=== PATIENT | female | born 1985 | race Caucasian/White ===

== ENCOUNTER 2017-10-08 12:05 | Inpatient (IN) | payer OTHER, SELFPAY ==
[2017-10-08 12:31] VITALS: BMI 33.3
[2017-10-08] MEDS: Lactated Ringers 1,000 ML 50 ML IV ×2 (12:45→18:11)
[2017-10-08 13:07] LABS: Hemoglobin 12.2 g/dl (12.0-15.0); Mean Corp Hgb Conc 33.9 g/gl (32-36); Mean Corpuscular Hgb 28.2 pg (27.0-32.0); Mean Corpuscular Volume 83.1 fL (81-99); Mean Platelet Vol. 11.4 fl (6.2-12.0); Platelet Count 143 K/mm3 (150-450); RBC Distribution Width CV 13.6 % (11.6-14.6); RBC Distribution Width SD 39.9 fl (35.1-43.9); Red Blood Count 4.33 M/mm3 (4.2-5.4); Scan Indicated on CBC? Y/N NO; White Blood Count 10.5 K/mm3 (4.4-11.0)
[2017-10-08] MEDS: Oxytocin 30 units/NS 500 ml 30 UNITS/500 ML IV.SOLN IV (13:45)
[2017-10-08] MEDS: Oxytocin 30 units/NS 500 ml 30 UNITS/500 ML IV.SOLN 334 UNITS IV (22:05)
[2017-10-08] MEDS: Oxytocin 30 units/NS 500 ml 30 UNITS/500 ML IV.SOLN 167 UNITS IV (22:35)
--- NOTE | 2017-10-08 23:50 | PCM.HPOB.BLA ---
- Problem List (1) Encounter for induction of labor Status: Acute (2) History of fourth degree perineal laceration Status: Acute Comment: discussed primary cs versus IOL at 39 weeks. information/handouts from ACOG given. patient undecided, expectant management (3) Supervision of normal Status: Acute Qualifiers: Comment: BRANDI 10/14/17 [facility] estefanía Juan Daniel KELLY [facility] History and Physical Date of Admission: 10/08/17 Intake Vital Signs 10/05/17 Height 5 ft 8 in 10/05/17 Weight: 212 lb 6 oz 10/05/17 Body Mass Index (BMI) 32.3 10/05/17 Blood Pressure 125/78 Intake Visit Reasons: (OB) Chief Complaint: est ob [employer] Required: No Is patient in pain?: No Allergies No Known Allergies Allergy (Verified 10/05/17 08:51) Medications Vits [Prenatabs FA] 1 tab PO DAILY 10/24/14 [History Confirmed 10/05/17] Last Menstral Period: 01/07/17 Zika: Zika virus screening: Negative : No PFSH PFSH Social History Smoking Status: Never smoker second hand exposure: No alcohol intake: never substance use type: does not use caffeine: Yes Type: coffee Number of servings: 1 what type of physical activity do you participate in: walking frequency: 3-4 times per week seatbelt use: always 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 Date Name GA/Weeks Outcome Route Bth Weight Gen Labor Lgth Anesthesia Del Locatn Provider FOB 02/21/15 Estefanía 41 live - full term vacuum 9lbs 2oz Male Delivery Date: 02/21/15 On 08/25/17 @ 11:29 Verenice Mendez VAVD 4th degree laceration HPI (OB): Details: RADHA JOSE is a 31 year old who presents for routine OB visit. she is planning on an IOL OB Visit BRANDI Calculator Estimated Delivery Date 10/14/17 Based on LMP (certain) 01/07/17 Current WG 38w 5d Number 1 Expected Delivery Route/Plan discussed versus primary cs for risk of fourth degree laceration- literature given Specific Issue/Plans flu and tdap given larc signed Initial Weight: Not Recorded Date EGA Weight BP Urine Prot Glucose FHR FuHt Pres Mov CTX Dilation Effaced St Visit Note Provider Comments 08/11/17 30w 6d 197 lb 8 oz 124/74 150 31 Cephalic Active absent no vb lof good fm no regular ctx. 08/25/17 32w 6d 201 lb 8 oz 121/73 Negative Negative 145 34 Cephalic Active absent no vb lof good fm no regular ctx. no vb lof good fm n oregular ctx 09/10/17 35w 1d 210 lb 120/75 Negative Negative 140 35 Cephalic Active absent no vb lof good fm no regular ctx 09/16/17 36w 0d 206 lb 133/79 Negative Negative 145 36 Cephalic Active absent occasional 1 2: 0 -4 no vb lof good fm no regular ctx no vb lof good fm no regular ctx discussed weight and with IOL at 39 weeks to limit size vs primary cs. will depend on cervicla exam. patient to decide. 09/23/17 37w 0d 209 lb 122/78 Negative Negative 140 36 Cephalic Active absent occasional 2 2: 0 -4 no vb lof good fm no regular ctx no vb lof good fm no regular ctx discussed weight and with IOL at 39 weeks to limit size vs primary cs. will depend on cervicla exam. patient to decide. no vb lofgood fm exp management 09/30/17 38w 0d 211 lb 117/78 Negative Negative 140 37 Cephalic Active absent occasional 3 4: 0 -3 no vb lof good fm no regular ctx no vb lofgood fm exp management NO VB LOF GOOD FM NO REGULAR CTX, EXPECTANT MANAGMANET 10/05/17 38w 5d 212 lb 6 oz 125/78 140 40 Cephalic Active absent occasional 4 5: 0 -3 no vb lof good fm no regular ctx NO VB LOF GOOD FM NO REGULAR CTX, EXPECTANT MANAGMANET Visit Notes Visit Date: 10/05/17 ??NO VB LOF GOOD FM NO REGULAR CTX, EXPECTANT MANAGMANET ??Verenice?Andrea,??on?10/04/17 ??no vb lofgood fm exp management ??Verenice?Andrea,??on?09/23/17 ??no vb lof good fm no regular ctx ??Verenice?Andrea,??on?09/10/17 Visit Date: 09/30/17 ??NO VB LOF GOOD FM NO REGULAR CTX, EXPECTANT MANAGMANET ??Verenice?Andrea,?MD?on?10/04/17 ??no vb lofgood fm exp management ??Verenice?Andrea,?MD?on?09/23/17 ??no vb lofgood fm exp management ??Verenice?Andrea,??on?09/23/17 ??no vb lof good fm no regular ctx ??Verenice?Andrea??on?09/10/17 Visit Date: 09/23/17 ??no vb lofgood fm exp management ??Verenice?Andrea,??on?09/23/17 ??no vb lof good fm no regular ctx discussed weight and with IOL at 39 weeks to limit size vs primary cs. will depend on cervicla exam. patient to decide. ??Verenice?Andrea??on?09/16/17 ??no vb lof good fm no regular ctx ??Verenice?Andrea??on?09/10/17 ??no vb lof good fm no regular ctx ??Verenice?Andrea??on?09/10/17 Visit Date: 09/16/17 ??no vb lof good fm no regular ctx discussed weight and with IOL at 39 weeks to limit size vs primary cs. will depend on cervicla exam. patient to decide. ??Verenice?Andrea??on?09/16/17 ??no vb lof good fm no regular ctx ??Verenice?Andrea??on?09/10/17 ??no vb lof good fm no regular ctx ??Verenice?Andrea??on?09/10/17 Visit Date: 09/10/17 ??no vb lof good fm no regular ctx ??Verenice?Andrea??on?09/10/17 ??no vb lof good fm n oregular ctx ??Verencie?Andrea??on?08/25/17 Visit Date: 08/25/17 ??no vb lof good fm n oregular ctx ??Verenice?GENA Mendez?on?08/25/17 ??no vb lof good fm no regular ctx. ??Verenice?GENA Mendez?on?08/11/17 Visit Date: 08/11/17 ??no vb lof good fm no regular ctx. ??Verenice?Andrea??on?08/11/17 Assessment & Plan Problems 1. Encounter for supervision of other normal in third trimester Z34.83 BRANDI 10/14/17 hilda CLOUD estefanía Juan Daniel KELLY Chris MAGyjg 2. History of fourth degree perineal laceration Z87.59 discussed primary cs versus IOL at 39 weeks. information/handouts from ACOG given. patient undecided, expectant management Plan discussed cs versus IOL or expectant management patient wishes to proceed with IOL-plan pit on Plan Detail Goals Decrease pain and spasm Barriers Coding Level of Care Code OB Routine Diagnoses Encounter for supervision of other normal in third trimester Z34.83 ??Normal : other normal ??Trimester: third trimester History of fourth degree perineal laceration Z87.59
--- NOTE | 2017-10-08 23:51 | PCM.OB.VAG ---
- Problem List (1) Encounter for induction of labor Status: Acute (2) History of fourth degree perineal laceration Status: Acute Comment: discussed primary cs versus IOL at 39 weeks. information/handouts from ACOG given. patient undecided, expectant management (3) Supervision of normal Status: Acute Qualifiers: Comment: BRANDI 10/14/17 [facility] estefanía Juan Daniel LETICIA [place] [facility] Vaginal Delivery Maternal Presentation: Medically Indicated Induction 31 yo @ 39 weeks presents for IOL hisotry of a fourth degree laceration with a previous 9 lb and vacuum delivery. patient was counseled on a primary cs versus exp managment vs IOL and patient wishes to proceed with an early IOL to reduce infant size. Method of Induction: Pitocin Amniotic Membrane Rupture Type: Artificial Amniotic Fluid Description: Clear Final BRANDI: 10/14/17 Gestational age: 39 Weeks and 1 Days [place] doctor who attended delivery (if requested by OB): Praveen Garrison MSSean Date of Procedure: 10/08/17 Pre-Operative Diagnosis: iol Post-Operative Diagnosis: same Surgery/ Procedure Performed: Spontaneous Vaginal Delivery Type of Anesthesia: Epidural Description of Procedure: spontaneous lucina vaginal delivery uncomplicated delayed cord clamping and 2nd degree laceration repaired in the usual fashion. 200 EBL. placenta delivered immediately following intact Presentation: LUCINA Placental Delivery Description: Spontaneous Cord Entanglement: None Estimated Blood Loss: 200 Infant A gender: Male Episiotomy Description: None Laceration: Perineal Extension/lac, 2nd degree Medications given after delivery: IV Pitocin Complications: None
--- NOTE | 2017-10-08 23:55 | OP.PCM_ITS ---
- Problem List (1) Encounter for induction of labor Status: Acute (2) History of fourth degree perineal laceration Status: Acute Comment: discussed primary cs versus IOL at 39 weeks. information/handouts from ACOG given. patient undecided, expectant management (3) Supervision of normal Status: Acute Qualifiers: Comment: BRANDI 10/14/17 [facility] estefanía Juan Daniel LETICIA [place] [facility] Vaginal Delivery Maternal Presentation: Medically Indicated Induction 31 yo @ 39 weeks presents for IOL hisotry of a fourth degree laceration with a previous 9 lb and vacuum delivery. patient was counseled on a primary cs versus exp managment vs IOL and patient wishes to proceed with an early IOL to reduce infant size. Method of Induction: Pitocin Amniotic Membrane Rupture Type: Artificial Amniotic Fluid Description: Clear Final BRANDI: 10/14/17 Gestational age: 39 Weeks and 1 Days [place] doctor who attended delivery (if requested by OB): Praveen Garrison MSSean Date of Procedure: 10/08/17 Pre-Operative Diagnosis: iol Post-Operative Diagnosis: same Surgery/ Procedure Performed: Spontaneous Vaginal Delivery Type of Anesthesia: Epidural Description of Procedure: spontaneous lucina vaginal delivery uncomplicated delayed cord clamping and 2nd degree laceration repaired in the usual fashion. 200 EBL. placenta delivered immediately following intact Presentation: LUICNA Placental Delivery Description: Spontaneous Cord Entanglement: None Estimated Blood Loss: 200 Infant A gender: Male Episiotomy Description: None Laceration: Perineal Extension/lac, 2nd degree Medications given after delivery: IV Pitocin Complications: None
[2017-10-09] MEDS: Naproxen 250 MG Tablet PO ×3 (02:30→18:33)
[2017-10-09] MEDS: oxyCODONE 5 MG Tablet PO (04:13)
[2017-10-09 04:15] VITALS: BP 109/63; PULSE 73; RESP 17; TEMP 36.3; O2SAT 97
[2017-10-09 08:00] VITALS: BP 118/73; PULSE 80; RESP 16; TEMP 36.6; O2SAT 97
[2017-10-09] MEDS: Prenatal Vits Tablet 1 TABLET PO (10:34)
[2017-10-09] MEDS: Senna/Docusate Sodium 1 Tablet PO (10:34)
[2017-10-09] MEDS: Dibucaine 30 GM Tube 1 APPLIC TOPICAL (10:40)
[2017-10-09 11:47] VITALS: BP 127/77; PULSE 81; RESP 16; TEMP 36.8; O2SAT 97
[2017-10-09] MEDS: Acetaminophen 500 MG Tablet 1000 MG PO ×2 (15:36→23:28)
[2017-10-09 16:40] VITALS: BP 124/85; PULSE 76; TEMP 36.4; O2SAT 97
[2017-10-09 20:50] VITALS: BP 119/69; PULSE 60; RESP 16; TEMP 36.8
[2017-10-10 02:00] VITALS: BP 127/79; PULSE 64; RESP 16; TEMP 36.6
[2017-10-10] MEDS: Naproxen 250 MG Tablet PO ×2 (02:21→09:49)
--- NOTE | 2017-10-10 08:28 | PCM.PN.OB ---
Patient Problems: Active and Suspected Problems (Last Reviewed 10/05/17 @ 15:50 by Alondra Whitney) Encounter for induction of labor (Acute) Subjective: late entry- seen 10/09/17 at 1710 doing well no complaints - Physical Exam General: Alert, Oriented x3 Vital Signs Temp Pulse Resp BP Pulse Ox 97.8 F 64 16 127/79 H 97 10/10/17 02:00 10/10/17 02:00 10/10/17 02:00 10/10/17 02:00 10/09/17 16:40 Oxygen Delivery Method Room Air Weight: 213 lb Body Mass Index (BMI) 33.3 Intake and Output for Last 24 Hours 10/08/17 10/09/17 10/10/17 23:59 23:59 23:59 Intake Total 2625 / 2625 Output Total 1350 / 1350 1600 / 1600 Balance 1275 / 1275 -1600 / -1600 Assessment/Plan Active and Suspected Problems (Last Reviewed 10/05/17 @ 15:50 by Alondra Whitney) Encounter for induction of labor (Acute) s/p routine care
--- NOTE | 2017-10-10 08:29 | PCM.PN.OB ---
Patient Problems: Active and Suspected Problems (Last Reviewed 10/05/17 @ 15:50 by Alondra Whitney) Encounter for induction of labor (Acute) Subjective: doing well no complaints - Physical Exam General: Alert, Oriented x3 Vital Signs Temp Pulse Resp BP Pulse Ox 97.8 F 64 16 127/79 H 97 10/10/17 02:00 10/10/17 02:00 10/10/17 02:00 10/10/17 02:00 10/09/17 16:40 Oxygen Delivery Method Room Air Weight: 213 lb Body Mass Index (BMI) 33.3 Intake and Output for Last 24 Hours 10/08/17 10/09/17 10/10/17 23:59 23:59 23:59 Intake Total 2625 / 2625 Output Total 1350 / 1350 1600 / 1600 Balance 1275 / 1275 -1600 / -1600 Assessment/Plan Active and Suspected Problems (Last Reviewed 10/05/17 @ 15:50 by Alondra Whitney) Encounter for induction of labor (Acute) s/p routine care ia home
--- NOTE | 2017-10-10 08:31 | PCM.DCVAG ---
Additional Instructions: If you experience any of the following, contact your healthcare provider. Bleeding that soaks a pad every hour for 2 hours Fever 100.4 or higher Unrelieved incision or abdominal pain Swelling, redness, discharge or bleeding from your incision or episiotomy site Your incision begins to separate Problems urinating (including inability to urinate or burning while urinating). Visual changes Severe headache Flu-like symptoms Pain or redness in one of both of your breasts Pain, warmth, tenderness or swelling in your legs, especially the calf area Frequent nausea and vomiting Symptoms of depression or anxiety If you experience any of the following, call 911 or go to the nearest Emergency Room. Chest pain Problems breathing Seizure activity Partial or complete paralysis of a body part, slurred speech, weakness or drooping of the face, or a sudden inability to walk or hold your balance Allergies/Adverse Reactions: Allergies No Known Allergies Allergy (Verified 10/08/17 15:53) Medications to take at Discharge Vits [Prenatabs FA] 1 tab PO DAILY 10/24/14 Please Follow Up With: Verenice Mendez MD - [phone] When: Call to make an appointment with your doctor in 6 weeks. If you had elevated Blood pressure or 4th degree laceration you will need to be seen in 2 weeks. Primary Care Physician: Clark Chisholm MD [Primary Care Provider] -
--- NOTE | 2017-10-10 08:32 | DCINST_ITS ---
Additional Instructions: If you experience any of the following, contact your healthcare provider. * Bleeding that soaks a pad every hour for 2 hours * Fever 100.4 or higher * Unrelieved incision or abdominal pain * Swelling, redness, discharge or bleeding from your incision or episiotomy site * Your incision begins to separate * Problems urinating (including inability to urinate or burning while urinating) . * Visual changes * Severe headache * Flu-like symptoms * Pain or redness in one of both of your breasts * Pain, warmth, tenderness or swelling in your legs, especially the calf area * Frequent nausea and vomiting * Symptoms of depression or anxiety If you experience any of the following, call 911 or go to the nearest Emergency Room. * Chest pain * Problems breathing * Seizure activity * Partial or complete paralysis of a body part, slurred speech, weakness or drooping of the face, or a sudden inability to walk or hold your balance Allergies/Adverse Reactions: Allergies No Known Allergies Allergy (Verified 10/08/17 15:53) Medications to take at Discharge Vits [Prenatabs FA] 1 tab PO DAILY 10/24/14 Please Follow Up With: Verenice Mendez MD - [phone] When: Call to make an appointment with your doctor in 6 weeks. If you had elevated Blood pressure or 4th degree laceration you will need to be seen in 2 weeks. Primary Care Physician: Clark Chisholm MD [Primary Care Provider] -
[2017-10-10] MEDS: Acetaminophen 500 MG Tablet 1000 MG PO (08:47)
[2017-10-10] MEDS: Prenatal Vits Tablet 1 TABLET PO (08:47)
[2017-10-10 09:27] VITALS: BP 119/69; PULSE 72; RESP 16; TEMP 37.2; O2SAT 99
[2017-10-10] MEDS: Senna/Docusate Sodium 1 Tablet PO (09:49)
[2017-10-10 13:30] VITALS: BP 126/79; PULSE 68; RESP 18; TEMP 36.3; O2SAT 100
--- NOTE | 2017-10-10 13:30 | NURSING ---
Pt informed this RN that when up to the shower she began to have some chest tightness and SOB that has improved with rest. Vitals taken on pt and all WNL. Call placed to Dr Mendez to inform of symptoms with normal vital signs and clear breath sounds and regular apical heart rate. Per Dr Mendez since the symptoms improved and vitals were normal at this time it was ok. To inform pt that if symptoms would persist or get worse to be checked out. Pt feels comfortable with these plans.
== END 2017-10-10 13:50 | disposition home or self-care (01) | DRG 775 ==
PROVIDERS: Admitting Provider Obstetrics & Gynecology; Family Provider Family Medicine; PCP Family Medicine; Visit Provider Obstetrics & Gynecology
DX: O34.73 Maternal care for abnormality of vulva and perineum, third trimester (principal); O70.1 Second degree perineal laceration during delivery; O77.0 Labor and delivery complicated by meconium in amniotic fluid; Z37.0 Single live birth; Z3A.39 39 weeks gestation of pregnancy; Z87.59 Personal history of other complications of pregnancy, childbirth and the puerperium
CPT/HCPCS: 59050; 85027; 86850; 86900; 99218; J7120; G0378

== ENCOUNTER 2018-01-13 12:11 | Emergency (ER) | payer OTHER, SELFPAY ==
[2018-01-13 12:12] VITALS: BP 143/84; PULSE 74; RESP 16; TEMP 36.3; O2SAT 95; BMI 28.2
--- NOTE | 2018-01-13 12:35 | CT_ITS ---
STUDY: CT ABDOMEN AND PELVIS WITHOUT CONTRAST REASON FOR EXAM: Female, 32 years old. Left flank pain and left lower quadrant pain. Acute onset. Hematuria. RADIATION DOSAGE (If Supplied By Facility): CTDIvol = ( 9.55 ) mGy, DLP = ( 467.84 ) mGycm TECHNIQUE: Transaxial images were obtained from the dome of the diaphragm to the symphysis pubis without oral contrast, and without intravenous contrast. Sagittal and coronal images were reconstructed. Individualized dose optimization techniques were used for this CT. COMPARISON: None. FINDINGS: Minimal increased markings at the left lung base suggestive of a atelectasis. The visualized portions of the heart are within normal limits. Normal liver. Normal gallbladder and extrahepatic biliary system. Normal spleen. Normal pancreas. Normal bilateral adrenal glands. 2 mm calculus in the upper pole calyx of the right kidney. 2.9 mm calculus in the lower pole of the right kidney. There is a 4.8 mm calculus in the upper midportion of the left kidney. Punctate calcification the upper pole calyx of the left kidney. Several small calculi are also seen in the lower pole of the left kidney. Mild degree of left hydronephrosis and left hydroureter due to a a 4.7 mm calculus at the base of the bladder on the left side. This most likely represents a recently passed left ureteral calculus. Normal visualized stomach. Normal small intestine. Normal colon. The appendix is visualized and appears normal. Normal abdominal aorta. Normal inferior vena cava. Normal retroperitoneum. Normal urinary bladder. Normal abdominal wall. Normal osseous structures. CT/Abdomen/Pelvis without Cont IMPRESSION: Bilateral nonobstructive intrarenal calculi are Mild degree of left hydronephrosis and left hydroureter most likely secondary to a recently passed 4.7 mm calculus which lies at the base of the bladder on the right side. Electronically Signed: Colton Garnica MD at 14:11 EDT Tel [phone], Service support ,
[2018-01-13] MEDS: Ketorolac 30 MG/ML Syringe IV (12:53)
[2018-01-13] MEDS: Ondansetron 4 MG/2 ML Vial IV (12:53)
[2018-01-13] MEDS: 0.9% Normal Saline 1,000 ML 250 ML IV (12:53)
[2018-01-13 13:02] LABS: Bacteria 0 SEEN /hpf (None Seen); Mucous, Urine 0 SEEN /hpf (<or=2+); Squamous Epithelial Cells - UA 0 SEEN /hpf (5-10); White Blood Cells 0 SEEN /hpf (0-5)
[2018-01-13 13:04] LABS: Color, Urine Yellow (Yellow); Glucose, Dipstick Normal (Normal); Ketone-Dipstick Negative (Negative); Leukocyte Esterase-Dipstick Negative /ul (Negative); Nitrite-Dipstick Negative (Negative); Occult Blood-Urine 250 /ul (Negative); Protein-Dipstick 15 mg/dl (Negative); Specific Gravity, Urine 1.015 (1.002-1.030); Urine Bilirubin Dipstick Negative (Negative); Urine Clarity Clear (Clear); Urine Urobilinogen Normal (Normal)
[2018-01-13 13:05] LABS: Absolute Lymphocyte Count 2.22 X10^3/ul (0.83-4.51); Absolute Neutrophil Count 3.9 X10^3/uL (2.0-7.7); Basophil# 0.01 X10^3/uL; Basophil% 0.2 % (0-1); Eosinophil# 0.08 X10^3/uL; Eosinophils% 1.2 % (0-5); Hematocrit 41.7 % (37-47); Hemoglobin 14.3 g/dl (12.0-15.0); Lymphocyte # 2.22 X10^3/ul (4.0); Lymphocyte % 33.4 % (19-41); Mean Corp Hgb Conc 34.3 g/gl (32-36); Mean Corpuscular Volume 81.8 fL (81-99); Monocyte# 0.47 X10^3/uL; Monocyte% 7.1 % (0-10); Neutrophil # 3.86 X10^3/uL (2.7-7.7); Neutrophil % 57.9 % (47-70); POSITIVE COUNT NO; POSITIVE DIFFERENTIAL NO; POSITIVE MORPHOLOGY NO; Platelet Count 218 K/mm3 (150-450); RBC Distribution Width SD 41.9 fl (35.1-43.9); White Blood Count 6.7 K/mm3 (4.4-11.0)
[2018-01-13 13:10] LABS: Red Blood Cells-Urine 10-25 SEEN /hpf (0-5)
[2018-01-13 13:22] LABS: Pregnancy, Serum, hCG Quali. NEGATIVE Negative (0-9 Nonpreg)
[2018-01-13 14:24] VITALS: BP 128/67; PULSE 69; RESP 15; O2SAT 99
--- NOTE | 2018-01-13 14:43 | ED.VISSUMM ---
- ER Visit Summary Date of Service: 01/13/18 Chief Complaint: Left flank pain dating anteriorly with dysuria, frequency, and urgency History of Present Illness: The patient is a 32 F who presents from urgent care because of acute left flank pain that started this morning that is waxing and waning in intensity radiating anteriorly to the left lower quadrant. Is associated with frequency, urgency dysuria and hematuria. She denies fever, chills night sweats. She denies nausea or vomiting. She denies any vaginal bleeding. She has not had a menstrual period since delivery of her child 3+ months ago. She states she is breast-feeding. She has no other complaints. Review of systems otherwise negative. She has no known allergies. Physical Examination: Vital signs are unremarkable. Blood pressure slightly elevated 128/67. She is afebrile. She does appear uncomfortable. HEENT exam is unremarkable. Insert cardiopulmonary exam abdomen is soft with minimal tenderness on left side. There is left-sided flank pain. There is no dermatologic lesions just herpes varicella-zoster. There is no evidence of inguinal hernia. Is no inguinal lymphadenopathy. Test Results: Serum test is negative. Urine is consistent with microscopic hematuria. There is no evidence infection. CT of the pelvis/abdomen reveals multiple renal calculi bilaterally and a recently passed 4.7 mm stone on the left side since there is mild hydroureter and nephrosis noted. Emergency Department Course and Treatment: IV was established and patient was treated with 4 mg Zofran and 30 mm Toradol IV push. CBC, serum test and UA were obtained. CT of the abdomen was ordered. Treatment Plan: Appropriate home-going instructions for renal calculi and past ureteral calculi. Disposition: Discharge to home with spouse Impression: 1. Recently passed left ureteral stone with mild hydroureteronephrosis 2. Bilateral renal calculi This note was generated with [employer] dictation software. It may contain incorrect words, spelling, and punctuation that were not noted in review of the chart prior to signing ED Disposition - Plan for ED Patient: Disposition: Home or Assisted Living Chief Complaint: Flank Pain Instructions: ED Stone Renal Passed, ED Stone Kidney Undescended No Sx Referrals: Clark Chisholm MD [Primary Care Provider] - As Needed
--- NOTE | 2018-01-13 14:47 | ED.DCSUM_ITS ---
- ER Visit Summary Date of Service: 01/13/18 Chief Complaint: Left flank pain dating anteriorly with dysuria, frequency, and urgency History of Present Illness: The patient is a 32 F who presents from urgent care because of acute left flank pain that started this morning that is waxing and waning in intensity radiating anteriorly to the left lower quadrant. Is associated with frequency, urgency dysuria and hematuria. She denies fever, chills night sweats. She denies nausea or vomiting. She denies any vaginal bleeding. She has not had a menstrual period since delivery of her child 3+ months ago. She states she is breast-feeding. She has no other complaints. Review of systems otherwise negative. She has no known allergies. Physical Examination: Vital signs are unremarkable. Blood pressure slightly elevated 128/67. She is afebrile. She does appear uncomfortable. HEENT exam is unremarkable. Insert cardiopulmonary exam abdomen is soft with minimal tenderness on left side. There is left-sided flank pain. There is no dermatologic lesions just herpes varicella-zoster. There is no evidence of inguinal hernia. Is no inguinal lymphadenopathy. Test Results: Serum test is negative. Urine is consistent with microscopic hematuria. There is no evidence infection. CT of the pelvis/ abdomen reveals multiple renal calculi bilaterally and a recently passed 4.7 mm stone on the left side since there is mild hydroureter and nephrosis noted. Emergency Department Course and Treatment: IV was established and patient was treated with 4 mg Zofran and 30 mm Toradol IV push. CBC, serum test and UA were obtained. CT of the abdomen was ordered. Treatment Plan: Appropriate home-going instructions for renal calculi and past ureteral calculi. Disposition: Discharge to home with spouse Impression: 1. Recently passed left ureteral stone with mild hydroureteronephrosis 2. Bilateral renal calculi This note was generated with [employer] dictation software. It may contain incorrect words, spelling, and punctuation that were not noted in review of the chart prior to signing ED Disposition - Plan for ED Patient: Disposition: Home or Assisted Living Chief Complaint: Flank Pain Instructions: ED Stone Renal Passed, ED Stone Kidney Undescended No Sx Referrals: Clark Chisholm MD [Primary Care Provider] - As Needed
[2018-01-13 15:30] VITALS: BP 125/64; PULSE 71; RESP 16; O2SAT 98
== END 2018-01-13 15:31 | disposition home or self-care (01) ==
PROVIDERS: Emergency Provider Emergency Medicine; Family Provider Family Medicine; PCP Family Medicine
DX: N20.0 Calculus of kidney (principal); N13.30 Unspecified hydronephrosis
CPT/HCPCS: 74176; 81001; 84703; 85025; 96361; 96374; 96375; 99283; J7030; J2405

== ENCOUNTER → 2018-12-16 17:15 | Outpatient (CLI) | payer OTHER, SELFPAY ==
[2018-12-16 15:20] VITALS: BMI 28.5
[2018-12-16 19:09] LABS: Chlamydia Trachomatis by PCR Negative (Negative); Neisserai gonorrhoeae by PCR Negative (Negative)
[2018-12-16 19:10] LABS: Probe Check PASS; Sample Adequacy Control PASS; Specimen Processing Control PASS
[2018-12-22 11:44] LABS: HPV APTIMA, High Risk Negative (Negative)
== END ==
PROVIDERS: Family Provider Family Medicine; PCP Family Medicine; Referring Provider Obstetrics & Gynecology; Visit Provider Obstetrics & Gynecology
DX: Z34.90 Encounter for supervision of normal pregnancy, unspecified, unspecified trimester (principal); Z12.4 Encounter for screening for malignant neoplasm of cervix
CPT/HCPCS: 87086; 87491; 87591; 87624; 88175; G0145

== ENCOUNTER 2019-01-07 10:31 | Outpatient (CLI) | payer OTHER, SELFPAY ==
[2019-01-07 10:31] VITALS: BMI 28.5
[2019-01-07 10:37] VITALS: BMI 26.6
[2019-01-07] MEDS: Dextrose 5%-Lactated Ringers 1,000 ML 1000 ML IV ×2 (11:15→12:15)
[2019-01-07] MEDS: Ondansetron 4 MG/2 ML Vial IV (11:26)
--- NOTE | 2019-01-08 08:12 | OB.TRI.NOTE ---
History of Present Illness Date of Service: 01/07/19 Was patient seen by the physician?: Yes Reason For Visit: FLUIDS Date of Service: 01/07/19 Final BRANDI Source: US <20 weeks Gestational age: 13 History of Present Illness: Reports nausea and vomitting with diarrhea for the past two days. Child also with GI symptoms. No bleeding. Poor tolerance of PO. Allergies No Known Allergies Allergy (Verified 01/07/19 11:29) - Pertinent Past Medical History Medical History: Past Medical History (Last Updated 12/16/18 @ 15:39 by Kamala Bruner) No significant medical problems No significant past surgical history Physical Exam General: Alert, Oriented x3, Cooperative, No apparent distress Cardiovascular: Regular rate, Regular Rhythm Lungs: Clear to auscultation, Normal air movement Abdomen: Soft, Non Tender, Non-Distended Extremities:: No edema Impression/Plan Nausea and vomitting with diarrhea likely due to gastrointestinal virus. Given IV hydration and antiemetics. Has zofran at home. Recommend imodium for diarrhea and try to push fluids at home.
== END 2019-01-07 13:15 | disposition home or self-care (01) ==
LOC: WPOUT 10:32 → OBT 10:33
PROVIDERS: Family Provider Family Medicine; PCP Family Medicine; Referring Provider Obstetrics & Gynecology; Visit Provider Obstetrics & Gynecology
DX: O21.9 Vomiting of pregnancy, unspecified (principal); O99.89 Other specified diseases and conditions complicating pregnancy, childbirth and the puerperium; R19.7 Diarrhea, unspecified; Z3A.12 12 weeks gestation of pregnancy
CPT/HCPCS: 96361 ×2; 96374; 99218; G0378; J2405

== ENCOUNTER → 2019-01-19 16:20 | Outpatient (CLI) | payer OTHER, SELFPAY ==
[2019-01-19 16:03] VITALS: BMI 26.6
[2019-01-19 17:43] LABS: Absolute Lymphocyte Count 2.87 X10^3/ul (0.83-4.51); Absolute Neutrophil Count 5.8 X10^3/uL (2.0-7.7); Basophil# 0.02 X10^3/uL; Basophil% 0.2 % (0-1); Eosinophil# 0.09 X10^3/uL; Eosinophils% 0.9 % (0-5); Hematocrit 39.3 % (37-47); Hemoglobin 13.9 g/dl (12.0-15.0); Lymphocyte # 2.87 X10^3/ul (4.0); Lymphocyte % 30.1 % (19-41); Mean Corp Hgb Conc 35.4 g/gl (32-36); Mean Corpuscular Hgb 29.6 pg (27.0-32.0); Mean Corpuscular Volume 83.8 fL (81-99); Mean Platelet Vol. 10.7 fl (6.2-12.0); Monocyte# 0.75 X10^3/uL; Monocyte% 7.9 % (0-10); Neutrophil # 5.76 X10^3/uL (2.7-7.7); Neutrophil % 60.6 % (47-70); Platelet Count 244 K/mm3 (150-450); RBC Distribution Width CV 13.5 % (11.6-14.6); RBC Distribution Width SD 40.5 fl (35.1-43.9); Red Blood Count 4.69 M/mm3 (4.2-5.4); White Blood Count 9.5 K/mm3 (4.4-11.0)
[2019-01-19 17:46] LABS: POSITIVE COUNT NO; POSITIVE DIFFERENTIAL NO; POSITIVE MORPHOLOGY NO
[2019-01-19 18:59] LABS: HIV - WCH Non-Reactive (Nonreactive); Rubella IgG 161.5 IU/mL
[2019-01-21 03:29] LABS: Rapid Plasmin Reagin (RPR) NONREACTIVE (NONREACTIVE)
[2019-01-21 10:28] LABS: HEPATITIS B SURFACE AG Negative (Negative)
== END ==
PROVIDERS: Family Provider Family Medicine; PCP Family Medicine; Referring Provider Obstetrics & Gynecology; Visit Provider Obstetrics & Gynecology
DX: Z34.90 Encounter for supervision of normal pregnancy, unspecified, unspecified trimester (principal)
CPT/HCPCS: 36415; 85025; 86592; 86703; 86762; 86850; 86900; 87340

== ENCOUNTER → 2019-05-06 17:05 | Outpatient (CLI) | payer OTHER, SELFPAY ==
[2019-05-06 14:52] VITALS: BMI 32.1
== END ==
PROVIDERS: Family Provider Family Medicine; PCP Family Medicine; Referring Provider Nurse Practitioner Women's Health; Visit Provider Nurse Practitioner Women's Health
DX: R30.0 Dysuria (principal)
CPT/HCPCS: 87086; 87088

== ENCOUNTER → 2019-05-10 15:55 | Outpatient (CLI) | payer OTHER, SELFPAY ==
[2019-05-10 15:19] VITALS: BMI 32.1
[2019-05-10 16:23] LABS: Absolute Lymphocyte Count 2.75 X10^3/uL (0.83-4.51); Absolute Neutrophil Count 6.3 X10^3/uL (2.0-7.7); Basophil# 0.03 X10^3/uL; Basophil% 0.3 % (0-1); Eosinophil# 0.06 X10^3/uL; Eosinophils% 0.6 % (0-5); Hematocrit 36.4 % (37-47); Hemoglobin 12.4 g/dL (12.0-15.0); Lymphocyte # 2.75 X10^3/ul (4.0); Lymphocyte % 27.8 % (19-41); Mean Corp Hgb Conc 34.1 g/dL (32-36); Mean Corpuscular Hgb 29.9 pg (27.0-32.0); Mean Corpuscular Volume 87.7 fL (81-99); Monocyte# 0.56 X10^3/uL; Monocyte% 5.7 % (0-10); NRBC Flagged by Analyzer 0 % (0-5); Neutrophil # 6.31 X10^3/uL (2.7-7.7); Neutrophil % 63.7 % (47-70); Platelet Count 164 K/mm3 (150-450); RBC Distribution Width CV 13.2 % (11.6-14.6); RBC Distribution Width SD 41.9 fl (35.1-43.9); Red Blood Count 4.15 M/mm3 (4.2-5.4); White Blood Count 9.9 K/mm3 (4.4-11.0)
[2019-05-10 16:43] LABS: Glucose Challenge Gest 1H 50g 125 mg/dL (70-140)
== END ==
PROVIDERS: Family Provider Family Medicine; PCP Family Medicine; Referring Provider Obstetrics & Gynecology; Visit Provider Obstetrics & Gynecology
DX: Z34.93 Encounter for supervision of normal pregnancy, unspecified, third trimester (principal); Z3A.29 29 weeks gestation of pregnancy
CPT/HCPCS: 36415; 82950; 85025

== ENCOUNTER → 2019-06-30 16:39 | Outpatient (CLI) | payer OTHER, SELFPAY ==
[2019-06-30 16:07] VITALS: BMI 32.1
[2019-06-30 17:10] LABS: Absolute Lymphocyte Count 3.27 X10^3/uL (0.83-4.51); Basophil# 0.03 X10^3/uL; Basophil% 0.3 % (0-1); Eosinophil# 0.08 X10^3/uL; Eosinophils% 0.7 % (0-5); Hematocrit 35.1 % (37-47); Hemoglobin 11.4 g/dL (12.0-15.0); Lymphocyte # 3.27 X10^3/ul (4.0); Lymphocyte % 28.8 % (19-41); Mean Corp Hgb Conc 32.5 g/dL (32-36); Mean Corpuscular Hgb 27.8 pg (27.0-32.0); Mean Corpuscular Volume 85.6 fL (81-99); Mean Platelet Vol. 11.4 fl (6.2-12.0); Monocyte# 0.78 X10^3/uL; Monocyte% 6.9 % (0-10); NRBC Flagged by Analyzer 0 % (0-5); Neutrophil # 7.03 X10^3/uL (2.7-7.7); Neutrophil % 61.8 % (47-70); Platelet Count 157 K/mm3 (150-450); RBC Distribution Width CV 13.8 % (11.6-14.6); White Blood Count 11.4 K/mm3 (4.4-11.0)
[2019-06-30 17:27] LABS: Protein, Urine (Random) 19.4 mg/dL (<11.9); Protein:Creat Ratio 569 mg/g CRE (0-200)
[2019-06-30 18:02] LABS: ALB/GLOB Ratio 0.8 RATIO (0.9-2.4); AST(SGOT) 21 U/L (15-37); Alanine Aminotransfer ALT/SGPT 18 U/L (13-56); Albumin, Serum 2.9 g/dL (3.2-5.0); Alkaline Phosphatase 94 U/L (45-117); Anion Gap 8 (5-15); BUN 10 mg/dL (7-18); BUN/Creat Ratio 14.3 RATIO (10-20); Calcium,Total 8.8 mg/dL (8.5-10.1); Chloride 105 mmol/L (98-107); EST Glomerular Filtration Rate 103 mL/min (>60); Est Glom Filt Rate - Afr Amer 125 mL/min (>60); Globulin 3.8 g/dL (2.2-4.2); Glucose 80 mg/dL (74-106); Potassium 3.8 mmol/L (3.5-5.1); Protein, Total 6.7 g/dL (6.4-8.2); Sodium Level 138 mmol/L (136-145)
[2019-06-30 18:53] LABS: Creatinine, Urine (random) < 13.00 mg/dL (NO RANGE EST.); Protein, Urine (Random) < 6.0 mg/dL (<11.9)
== END ==
PROVIDERS: Family Provider Family Medicine; PCP Family Medicine; Referring Provider Obstetrics & Gynecology; Visit Provider Obstetrics & Gynecology
DX: O16.3 Unspecified maternal hypertension, third trimester (principal); O26.899 Other specified pregnancy related conditions, unspecified trimester; N89.8 Other specified noninflammatory disorders of vagina; Z3A.00 Weeks of gestation of pregnancy not specified
CPT/HCPCS: 36415; 80053; 82570; 84156; 85025; 87081

== ENCOUNTER → 2019-07-04 16:29 | Outpatient (CLI) | payer OTHER, SELFPAY ==
[2019-06-30 16:07] VITALS: BMI 32.1
[2019-07-04 17:23] LABS: Protein, Urine (Random) < 6.0 mg/dL (<11.9)
== END ==
PROVIDERS: Family Provider Family Medicine; PCP Family Medicine; Referring Provider Obstetrics & Gynecology; Visit Provider Obstetrics & Gynecology
DX: O16.3 Unspecified maternal hypertension, third trimester (principal)
CPT/HCPCS: 82570; 84156

== ENCOUNTER 2019-07-16 11:35 | Outpatient (CLI) | payer OTHER, SELFPAY ==
[2019-07-11 16:56] VITALS: BMI 32.1
[2019-07-16 11:54] VITALS: BMI 36.0
--- NOTE | 2019-07-17 22:24 | OB.TRI.PN ---
Progress Notes Date of Service: 07/16/19 Progress Note: FHT: 130 Moderate variability reactive no decelerations category I tracing Waterman: no regular Contractions decreased fm reactive nst dc home Multi Select Codes - Urinary/Genital Urinary/Genital CPT Codes: 62793-16 non-stress test Interp
== END 2019-07-16 12:00 | disposition home or self-care (01) ==
LOC: WPOUT 11:37 → WP 11:38 → OBT 11:50
PROVIDERS: Family Provider Family Medicine; PCP Family Medicine; Referring Provider Obstetrics & Gynecology; Visit Provider Obstetrics & Gynecology
DX: O36.8190 Decreased fetal movements, unspecified trimester, not applicable or unspecified (principal); Z3A.00 Weeks of gestation of pregnancy not specified
CPT/HCPCS: 59025; 59050; 99218; G0378

== ENCOUNTER 2019-07-20 07:10 | Inpatient (IN) | payer OTHER, SELFPAY ==
[2019-07-19 15:47] VITALS: BMI 36.0
[2019-07-20 07:36] VITALS: BMI 35.9
[2019-07-20] MEDS: Lactated Ringers 1,000 ML 50 ML IV (07:45)
[2019-07-20] MEDS: Oxytocin 30 units/NS 500 ml 30 UNITS/500 ML IV.SOLN IV (07:56)
[2019-07-20 08:14] LABS: Absolute Lymphocyte Count 1.92 X10^3/uL (0.83-4.51); Absolute Neutrophil Count 6.1 X10^3/uL (2.0-7.7); Basophil# 0.03 X10^3/uL; Basophil% 0.3 % (0-1); Eosinophil# 0.05 X10^3/uL; Eosinophils% 0.6 % (0-5); Hematocrit 33.9 % (37-47); Hemoglobin 11.2 g/dL (12.0-15.0); Lymphocyte # 1.92 X10^3/ul (4.0); Lymphocyte % 21.7 % (19-41); Mean Corpuscular Hgb 27.9 pg (27.0-32.0); Mean Corpuscular Volume 84.3 fL (81-99); Mean Platelet Vol. 11.8 fl (6.2-12.0); Monocyte# 0.52 X10^3/uL; Monocyte% 5.9 % (0-10); NRBC Flagged by Analyzer 0 % (0-5); Neutrophil # 6.12 X10^3/uL (2.7-7.7); Neutrophil % 69.3 % (47-70); Platelet Count 125 K/mm3 (150-450); RBC Distribution Width SD 42.8 fl (35.1-43.9); Red Blood Count 4.02 M/mm3 (4.2-5.4); White Blood Count 8.8 K/mm3 (4.4-11.0)
[2019-07-20] MEDS: fentaNYL-bupivacaine (epidural) 100 ML BAG EPIDURAL ×2 (10:47→14:52)
[2019-07-20] MEDS: Oxytocin 30 units/NS 500 ml 30 UNITS/500 ML IV.SOLN 334 UNITS IV (15:45)
--- NOTE | 2019-07-20 15:57 | HP.PCM_ITS ---
- Problem List (1) Elevated blood pressure affecting in third trimester, antepartum Status: Acute Comment: check labs, reviewed preeclampsia precautions (2) Influenza vaccination declined Status: Acute (3) Status: Acute Qualifiers: Weeks of gestation: 39 weeks Qualified Code(s): Z3A.39 - 39 weeks gestation of Comment: Declined NIPT, Carrier, NTD (4) Segmental and somatic dysfunction of sacral region Status: Acute (5) Segmental and somatic dysfunction of thoracic region Status: Acute (6) Segmental and somatic dysfunction of lumbar region Status: Acute (7) Segmental and somatic dysfunction of cervical region Status: Acute (8) History of fourth degree perineal laceration Status: Acute Comment: IOL at 39 weeks last with 2nd degree laceration. discussed IOL at 39-40 weeks 07/20 or 07/25 (9) Supervision of normal Status: Acute Qualifiers: Normal : other normal Trimester: third trimester Qualified Code(s): Z34.83 - Encounter for supervision of other normal , third trimester Comment: PRR BRANDI 07/25/19 surprise PC:Robert Leos Spouse: Juan Daniel History Date of Admission: 10/08/17 Final BRANDI: 07/27/19 Final BRANDI Source: US <20 weeks Gestational age: 39 Weeks and 0 Days History of this : This is a 33 year-old, at 39 weeks gestational age presents IOL LGA she dneie haly vb lof admits good fm. Medical History: Medical History (Last Reviewed 07/20/19 @ 09:21 by Alondra Whitney) No significant medical problems No significant past surgical history Allergies No Known Allergies Allergy (Verified 07/19/19 15:46) Home Medications: Home Medications Vits [Prenatabs FA] 1 tab PO DAILY 10/24/14 promethazine 25 mg tablet 25 mg PO Q6H PRN #60 tab 12/16/18 Smoking Status: Never smoker Alcohol: None Number of Fetus(es): 1 NST - FHR Rate Baby A Baseline: 130 Variability:: Moderate Accelerations:: 15 x 15 Decelerations:: None NST Reactive:: Yes FHR Category:: Category I Uterine Activity:: none History Past Pregnancies: Past Pregnancies Delivery Date Name GA/ Weeks Outcome Route Wt Sex Labor Length Anesthesia Delivery Location Provider FOB Expected Delivery Method: Spontaneous Vaginal Review of Systems Constitutional: Denies: Fever, Malaise Eyes: Denies: Blurred vision, Vision Change HEENT: Denies: Head Aches, Visual Changes Cardiovascular: Denies: Chest Pain, Palpitations Respiratory: Denies: Cough, Shortness of Breath, Wheezing Gastrointestinal: Denies: Abdominal Pain, Diarrhea, Nausea, Vomiting Genitourinary: Denies: Dysuria, Hematuria Musculoskeletal: Denies: Joint Pain, Muscle pain Skin: Denies: Lesions, Rash Neurological: Denies: Blurred vision, Focal weakness, Headaches Psychiatric: Denies: Anxiety, Depression Endocrine: Denies: Heat/ Cold Intolerance Hematologic/ Lymphatic: Denies: Easy Bruising, Easy Bleeding Physical Exam General: Alert, Cooperative, No apparent distress HEENT: Atraumatic, Normocephalic. Negative for: Thyromegaly, Lymphadenopathy Cardiovascular: Regular rate Lungs: Normal air movement Abdomen: Soft, Non Tender, Gravid Neurological: Deep Tendon Reflexes 2+/4 and Symmetrical, Neuro grossly intact. 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 Negative for: Vulvar lesions Estimated gestational size: Appropriate for gestational size Presentation: Cephalic Assessment/Plan All Active Problems (Last Reviewed 07/20/19 @ 09:21 by Alondra Whitney) Elevated blood pressure affecting in third trimester, antepartum (Acute) Influenza vaccination declined (Acute) (Acute) Segmental and somatic dysfunction of sacral region (Acute) Segmental and somatic dysfunction of thoracic region (Acute) Segmental and somatic dysfunction of lumbar region (Acute) Segmental and somatic dysfunction of cervical region (Acute) History of fourth degree perineal laceration (Acute) Supervision of normal (Acute) This is a 33 year-old, at 39 weeks gestational age presents IOL LGA plan pitocin IOL plan epidural
[2019-07-20] MEDS: Naproxen 250 MG Tablet 500 MG PO (19:38)
[2019-07-20 19:50] VITALS: BP 127/77; PULSE 87; RESP 18; TEMP 37.2
--- NOTE | 2019-07-20 21:14 | PCM.OPRPT ---
Problem List (1) Elevated blood pressure affecting in third trimester, antepartum Status: Acute Comment: check labs, reviewed preeclampsia precautions (2) Influenza vaccination declined Status: Acute (3) Status: Acute Qualifiers: Weeks of gestation: 39 weeks Qualified Code(s): Z3A.39 - 39 weeks gestation of Comment: Declined NIPT, Carrier, NTD (4) Segmental and somatic dysfunction of sacral region Status: Acute (5) Segmental and somatic dysfunction of thoracic region Status: Acute (6) Segmental and somatic dysfunction of lumbar region Status: Acute (7) Segmental and somatic dysfunction of cervical region Status: Acute (8) History of fourth degree perineal laceration Status: Acute Comment: IOL at 39 weeks last with 2nd degree laceration. discussed IOL at 39-40 weeks 07/20 or 07/25 (9) Supervision of normal Status: Acute Qualifiers: Normal : other normal Trimester: third trimester Qualified Code(s): Z34.83 - Encounter for supervision of other normal , third trimester Comment: PRR BRANDI 07/25/19 surprise PC:Robert Leos Spouse: Juan Daniel Vaginal Delivery Maternal Presentation: Medically Indicated Induction iol lga Method of Induction: Pitocin Amniotic Membrane Rupture Type: Artificial Amniotic Fluid Description: Clear Date of Procedure: 07/20/19 Pre-Operative Diagnosis: iol lga Post-Operative Diagnosis: same Surgery/ Procedure Performed: Spontaneous Vaginal Delivery Type of Anesthesia: Epidural Description of Procedure: Patient began pushing and delivered the head in the DEBORA presentation. The head was delivered atraumatically. The anterior and posterior shoulders delivered without complication followed by the rest of the and the was placed on the maternal abdomen. Delayed cord clamping was employed for approximately 60 seconds. Cord was clamped and cut and gentle traction was applied to the cord and the placenta delivered spontaneously immediately following it was noted to be intact with three-vessel cord. The perineum and vagina were inspected and noted to have a second degree laceration. EBL was 300 cc. Patient and infant tolerated delivery well. Presentation: DEBORA Placental Delivery Description: Spontaneous Multi Select Codes - Urinary/Genital Urinary/Genital CPT Codes: 43827 Vaginal Delivery [facility]
[2019-07-20] MEDS: Acetaminophen 500 MG Tablet 1000 MG PO (22:32)
[2019-07-20 23:46] VITALS: BP 122/49; PULSE 74; RESP 18; TEMP 36.6
[2019-07-21 03:40] VITALS: BP 113/68; PULSE 72; RESP 16; TEMP 36.3
[2019-07-21] MEDS: Naproxen 250 MG Tablet 500 MG PO ×3 (03:52→12:43)
--- NOTE | 2019-07-21 07:55 | PN.OBGYN_ITS ---
Subjective: doing well no complaints pain controlled no CP SOB N V ambulating well tolerating po lochia moderate, going well - Physical Exam Vitals/I&O's: Vital Signs Temp Pulse Resp BP 97.4 F L 72 16 113/68 07/21/19 03:40 07/21/19 03:40 07/21/19 03:40 07/21/19 03:40 Oxygen Delivery Method Room Air Weight: 229 lb Body Mass Index (BMI) 35.9 Intake and Output for Last 24 Hours 07/19/19 07/20/19 07/21/19 23:59 23:59 23:59 Intake Total 1551.40 / 1551.40 Output Total 1200 / 1200 Balance 351.40 / 351.40 General: Alert, Oriented x3 Abdomen: Soft, Non Tender, Non-Distended, - - FF below U Laboratory Results 07/20/19 07:45: WBC 8.8, RBC 4.02 L, Hgb 11.2 L, Hct 33.9 L, MCV 84.3, MCH 27.9, MCHC 33.0, RDW Std Deviation 42.8, RDW Coeff of Michelle 14.0, Plt Count 125 L, MPV 11.8, Immature Gran % (Auto) 2.200 H, Neut % (Auto) 69.3, Lymph % (Auto) 21.7, [place] % (Auto) 5.9, Eos % (Auto) 0.6, Baso % (Auto) 0.3, Absolute Neuts (auto) 6.1, Absolute Lymphs (auto) 1.92, Nucleated RBC % 0 07/20/19 07:45: Blood Type Cancelled, A1 Antigen Typing Cancelled, Rho(D) Type Cancelled, Antibody Screen Cancelled 07/20/19 08:45: Blood Type A POSITIVE, Antibody Screen NEGATIVE Current Medications Acetaminophen (Tylenol) 1,000 mg PO Q8H PRN PRN PRN Reason: Pain Score 1-3/10 Last Admin: 07/20/19 22:32 Dose: 1,000 mg Documented by: Bisacodyl (Dulcolax) 10 mg RECTAL UD PRN PRN Reason: If no BM Dibucaine (Dibucaine) 1 applic TOPICAL TID PRN PRN; Protocol PRN Reason: Discomfort Hydrocortisone (Hytone) 1 applic TOPICAL TID PRN PRN; Protocol PRN Reason: Discomfort Methylergonovine Maleate (Methergine) 0.2 mg IM X1 PRN PRN Reason: Excess bleeding/uterine atony Naproxen (Naprosyn) 500 mg PO Q8H PRN PRN PRN Reason: Pain Score 1-3/10 Last Admin: 07/21/19 03:56 Dose: 250 mg Documented by: Ondansetron HCl (Zofran) 4 mg IV Q4H PRN PRN PRN Reason: Nausea Oxycodone HCl (Oxyir) 5 - 10 mg PO Q4H PRN PRN PRN Reason: Pain Score 4-10/10 Senna/Docusate Sodium (Senokot-S, Casi-Colace) 1 - 2 tablet PO DAILY PRN PRN PRN Reason: Constipation Simethicone (Mylicon) 80 mg PO PCHS PRN PRN Reason: Indigestion/Stomach pain Sodium Chloride () 5 - 15 ml IV UD PRN PRN Reason: SALINE FLUSH Medical Necessity - Tobacco Use Smoking Status: Never smoker Assessment/Plan All Active Problems (Last Reviewed 07/20/19 @ 09:21 by Alondra Whitney) Elevated blood pressure affecting in third trimester, antepartum (Acute) Influenza vaccination declined (Acute) (Acute) Segmental and somatic dysfunction of sacral region (Acute) Segmental and somatic dysfunction of thoracic region (Acute) Segmental and somatic dysfunction of lumbar region (Acute) Segmental and somatic dysfunction of cervical region (Acute) History of fourth degree perineal laceration (Acute) Supervision of normal (Acute) s/p PPD # 1 1. routine post delivery care 2. breast feeding- support given 3. rh positive 4. rubella immune 5. 2nd degree lac-encourage stool softener 6. home today
--- NOTE | 2019-07-21 07:56 | DCINST_ITS ---
Additional Instructions: If you experience any of the following, contact your healthcare provider. * Bleeding that soaks a pad every hour for 2 hours * Fever 100.4 or higher * Unrelieved incision or abdominal pain * Swelling, redness, discharge or bleeding from your incision or episiotomy site * Your incision begins to separate * Problems urinating (including inability to urinate or burning while urinating). * Visual changes * Severe headache * Flu-like symptoms * Pain or redness in one of both of your breasts * Pain, warmth, tenderness or swelling in your legs, especially the calf area * Frequent nausea and vomiting * Symptoms of depression or anxiety If you experience any of the following, call 911 or go to the nearest Emergency Room. * Chest pain * Problems breathing * Seizure activity * Partial or complete paralysis of a body part, slurred speech, weakness or drooping of the face, or a sudden inability to walk or hold your balance Allergies/Adverse Reactions: Allergies No Known Allergies Allergy (Verified 07/19/19 15:46) Medications to take at Discharge Vits [Prenatabs FA] 1 tab PO DAILY 10/24/14 promethazine 25 mg tablet 25 mg PO Q6H PRN #60 tab 12/16/18 Primary Care Physician: Clark Chisholm MD [Primary Care Provider] - Test Results: Test results from this visit will be discussed in further detail at your follow- up appointment, if applicable.
--- NOTE | 2019-07-21 07:56 | PCM.DCVAG ---
Additional Instructions: If you experience any of the following, contact your healthcare provider. Bleeding that soaks a pad every hour for 2 hours Fever 100.4 or higher Unrelieved incision or abdominal pain Swelling, redness, discharge or bleeding from your incision or episiotomy site Your incision begins to separate Problems urinating (including inability to urinate or burning while urinating). Visual changes Severe headache Flu-like symptoms Pain or redness in one of both of your breasts Pain, warmth, tenderness or swelling in your legs, especially the calf area Frequent nausea and vomiting Symptoms of depression or anxiety If you experience any of the following, call 911 or go to the nearest Emergency Room. Chest pain Problems breathing Seizure activity Partial or complete paralysis of a body part, slurred speech, weakness or drooping of the face, or a sudden inability to walk or hold your balance Allergies/Adverse Reactions: Allergies No Known Allergies Allergy (Verified 07/19/19 15:46) Medications to take at Discharge Vits [Prenatabs FA] 1 tab PO DAILY 10/24/14 promethazine 25 mg tablet 25 mg PO Q6H PRN #60 tab 12/16/18 Primary Care Physician: Clark Chisholm MD [Primary Care Provider] - Test Results: Test results from this visit will be discussed in further detail at your follow-up appointment, if applicable.
[2019-07-21 08:28] VITALS: BP 125/80; PULSE 75; RESP 18; TEMP 36.6
[2019-07-21] MEDS: Senna/Docusate Sodium 1 Tablet PO (08:32)
[2019-07-21] MEDS: Acetaminophen 500 MG Tablet 1000 MG PO (08:35)
[2019-07-21 12:45] VITALS: BP 128/76; PULSE 75; RESP 18; TEMP 36.2
[2019-07-21 15:57] VITALS: BP 128/84; PULSE 69; RESP 18; TEMP 36.3
== END 2019-07-21 18:00 | disposition home or self-care (01) | DRG 806 ==
PROVIDERS: Admitting Provider Obstetrics & Gynecology; Family Provider Family Medicine; PCP Family Medicine; Referring Provider Obstetrics & Gynecology; Visit Provider Obstetrics & Gynecology
DX: O36.63X0 Maternal care for excessive fetal growth, third trimester, not applicable or unspecified (principal); O16.3 Unspecified maternal hypertension, third trimester; Z37.0 Single live birth; O99.89 Other specified diseases and conditions complicating pregnancy, childbirth and the puerperium; M99.01 Segmental and somatic dysfunction of cervical region; M99.02 Segmental and somatic dysfunction of thoracic region; M99.03 Segmental and somatic dysfunction of lumbar region; M99.04 Segmental and somatic dysfunction of sacral region; O70.1 Second degree perineal laceration during delivery; Z3A.39 39 weeks gestation of pregnancy; Z28.21 Immunization not carried out because of patient refusal; Z87.59 Personal history of other complications of pregnancy, childbirth and the puerperium
CPT/HCPCS: 59025; 59050; 85025; 86850; 86900; 86901; 99218; J7120; G0378

== ENCOUNTER → 2021-02-21 14:47 | Outpatient (CLI) | payer OTHER, SELFPAY ==
[2021-02-21 14:16] VITALS: BMI 27.7
[2021-02-21 15:02] LABS: Absolute Lymphocyte Count 2.47 X10^3/uL (0.83-4.51); Absolute Neutrophil Count 5.2 X10^3/uL (2.0-7.7); Basophil# 0.02 X10^3/uL; Basophil% 0.2 % (0-1); Eosinophil# 0.08 X10^3/uL; Hematocrit 40.3 % (37-47); Hemoglobin 14.3 g/dL (12.0-15.0); Lymphocyte # 2.47 X10^3/ul (0.83-4.51); Lymphocyte % 29.7 % (19-41); Mean Corp Hgb Conc 35.5 g/dL (32-36); Mean Corpuscular Hgb 30.3 pg (27.0-32.0); Mean Corpuscular Volume 85.4 fL (81-99); Mean Platelet Vol. 11.1 fl (6.2-12.0); Monocyte# 0.52 X10^3/uL; Monocyte% 6.3 % (0-10); NRBC Flagged by Analyzer 0 % (0-5); Neutrophil # 5.18 X10^3/uL (2.7-7.7); Neutrophil % 62.3 % (47-70); Platelet Count 217 K/mm3 (150-450); RBC Distribution Width CV 12.5 % (11.6-14.6); RBC Distribution Width SD 38.6 fl (35.1-43.9); Red Blood Count 4.72 M/mm3 (4.2-5.4); White Blood Count 8.3 K/mm3 (4.4-11.0)
[2021-02-21 17:01] LABS: Amphetamine Urine VISTA NEGATIVE (<1000 ng/mL); Barbiturate Urine VISTA NEGATIVE (< 200 ng/mL); Benzodiazepine Urine VISTA NEGATIVE (< 200 ng/mL); Cocaine Urine VISTA NEGATIVE (< 300 ng/mL); Ecstacy Urine VISTA NEGATIVE (< 500 ng/mL); Methadone Urine VISTA NEGATIVE (< 300 ng/mL); PCP Urine VISTA NEGATIVE (< 25 ng/mL); THC Urine VISTA NEGATIVE (< 50 ng/mL); Vista UDS pH Range 6
[2021-02-22 11:09] LABS: HIV - WCH Non-Reactive (Nonreactive); Hepatitis B Surface Antigen Non-Reactive (Nonreactive); Hepatitis C Antibody Non-Reactive (Nonreactive); Rubella IgG Reactive (Nonreactive); Syphilis Antibodies Non-reactive
[2021-02-25 07:06] LABS: Chlamydia By Nucleic Acid AMP Negative (Negative)
[2021-02-26 11:28] LABS: Gonococcus By Nucleic Acid AMP Negative (Negative)
== END ==
PROVIDERS: PCP Internal Medicine; Referring Provider Obstetrics & Gynecology; Visit Provider Obstetrics & Gynecology
DX: Z34.90 Encounter for supervision of normal pregnancy, unspecified, unspecified trimester (principal)
CPT/HCPCS: 36415; 80307; 85025; 86703; 86762; 86780; 86803; 86850; 86900; 86901; 87086; 87340; 87491; 87591

== ENCOUNTER → 2021-07-05 10:31 | Outpatient (CLI) | payer OTHER, SELFPAY ==
[2021-07-05 10:57] LABS: Absolute Lymphocyte Count 1.93 X10^3/uL (0.83-4.51); Absolute Neutrophil Count 7.3 X10^3/uL (2.0-7.7); Basophil# 0.03 X10^3/uL; Basophil% 0.3 % (0-1); Eosinophil# 0.07 X10^3/uL; Eosinophils% 0.7 % (0-5); Hematocrit 36.4 % (37-47); Hemoglobin 12.5 g/dL (12.0-15.0); Lymphocyte # 1.93 X10^3/ul (0.83-4.51); Lymphocyte % 19.4 % (19-41); Mean Corp Hgb Conc 34.3 g/dL (32-36); Mean Corpuscular Hgb 30.6 pg (27.0-32.0); Mean Platelet Vol. 10.5 fl (6.2-12.0); Monocyte# 0.52 X10^3/uL; Monocyte% 5.2 % (0-10); NRBC Flagged by Analyzer 0 % (0-5); Neutrophil # 7.31 X10^3/uL (2.7-7.7); Neutrophil % 73.3 % (47-70); Platelet Count 166 K/mm3 (150-450); RBC Distribution Width CV 12.9 % (11.6-14.6); RBC Distribution Width SD 41.8 fl (35.1-43.9); Red Blood Count 4.09 M/mm3 (4.2-5.4)
[2021-07-05 11:12] LABS: Glucose Challenge Gest 1H 50g 110 mg/dL (70-140)
== END ==
PROVIDERS: Obstetrics & Gynecology; PCP Internal Medicine; Referring Provider Obstetrics & Gynecology; Visit Provider Obstetrics & Gynecology
DX: Z34.80 Encounter for supervision of other normal pregnancy, unspecified trimester (principal)
CPT/HCPCS: 36415; 82950; 85025

== ENCOUNTER 2021-08-14 20:50 | Outpatient (CLI) | payer OTHER, SELFPAY ==
[2021-08-14 21:05] VITALS: BMI 33.9
[2021-08-14 21:13] VITALS: BP 131/80; PULSE 81; TEMP 36.5; O2SAT 98
--- NOTE | 2021-08-14 21:31 | NURSING ---
ROM to be collected. unsure of rupture.
[2021-08-14 22:07] LABS: ROM Internal Control Test YES-OK TO RESULT pt. (Internal QC); ROM Patient Test Negative (Negative)
--- NOTE | 2021-08-22 08:07 | OB.TRI.HP_ITS ---
HPI - General HPI Narrative RADHA JOSE, is a 35 F who presents to OB triage on 08/14/2021 for assessment of possible rupture of membranes. Maternal Data Information BRANDI Calculator Estimated Delivery Date Method Current WG Current Estimate 09/25/21 LMP (Certain) 35w 1d Other Estimates 09/26/21 Ultrasound #1 35w 0d PFSH PFS Medical History (Updated 08/22/21 @ 08:[address] Martina Posadas, DO) No significant medical problems Home Medications vit,[id number] 1 tab PO DAILY 10/24/14 [History Last Taken 08/13/21 21:00] Allergy/AdvReac Type Severity Reaction Status Date / Time No Known Allergies Allergy Verified 08/16/21 11:16 Family History Grandfather CAD (coronary artery disease) Mother CAD (coronary artery disease) Grandmother CAD (coronary artery disease) Father Hypertension Grandmother CAD (coronary artery disease) Surgical History No significant past surgical history Social History adopted: No household members: spouse and children number of children: 3 current occupational status: employed 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 Date Name GA/Weeks Outcome Route Bth Weight Infant Gen Labor Lgth Anesthesia Del Locatn Provider FOB 02/21/15 Deric 41 live - full term vacuum 9lbs 2oz Male ep idural [facility] [place] 09/07/17 Jones 39 live - full term 8 1 oz Male epidu ral [facility] SM 07/20/19 Keri 39 live - full term 7lbs 10oz Male e pidural [facility] REGLA Delivery Date: 02/21/15 VAVD 4th degree laceration Kamala Bruner Delivery Date: 09/07/17 2 degree tear Kamala Bruner Delivery Date: 07/20/19 HTN end of . No intervention Jacklyn Silva Visit Details Expected Delivery Route/Plan Labor Preferences- CB/BF classes: [] labor support person: [] labor intervention preferences: [] pain management options preferred: [] cut cord/dad catch: [] : [] PP control planned: [] discussed possible routes of delivery and associated risks: [] special requests: [] Plans covid status: pos 09/27 flu vaccine: [] tdap vaccine: [] rhogam: [] LARC form signed: [] Problem list reviewed and updated with the most current plan of care details and appropriate orders placed. Relevant counseling for the gestational age provided. Continue routine care and follow up unless otherwise noted in visit notes/problem list details OB Flowsheet Initial Weight: 170 lb Date -?-?-?-?-?-?-?-?-?-?-?-?- EGA Weight BP Urine Prot -?-?-?-?-?-?-?-?-?-?-?-?- Glucose FHR FuHt Pres Dilation -?-?-?-?-?-?-?-?-?-?-?-?- Effaced St Visit Note 02/21/21 -?-?-?-?-?-?-?-?-?-?-?-?- 9w 1d 172 lb (+2 lb) 106/80 -?-?-?-?-?-?-?-?-?-?-?-?- 170 -?-?-?-?-?-?-?-?-?-?-?-?- SM- CRL cons wit h LMP 03/14/21 -?-?-?-?-?-?-?-?-?-?-?-?- 12w 1d 178 lb (+8 lb) 108/80 -?-?-?-?-?-?-?-?-?-?-?-?- 160 -?-?-?-?-?-?-?-?-?-?-?-?- Sm- no vb crampi ng 04/11/21 -?-?-?-?-?-?-?-?-?-?-?-?- 16w 1d 184 lb (+14 lb) 122/70 Negative -?-?-?-?-?-?-?-?-?-?-?-?- Negative 148 -?-?-?-?-?-?-?-?-?-?-?-?- MH-No Vb, LOF. P assed kidney stone last wk. Denies concerns. 05/10/21 -?-?-?-?-?-?-?-?-?-?-?-?- 20w 2d 190 lb 8 oz (+20 lb 8 oz) 114/82 Negative -?-?-?-?-?-?-?-?-?-?-?-?- Negative 145 -?-?-?-?-?-?-?-?-?-?-?-?- GP - no cramping or bleeding. Anatomy scan nl. It's a boy! 06/21/21 -?-?-?-?-?-?-?-?-?-?-?-?- 26w 2d 199 lb 8 oz (+29 lb 8 oz) 130/72 Negative -?--?-?-?-?-?-?-?-?-?-?-?- Negative 140 26 -?-?-?-?-?-?-?-?-?-?-?-?- GP - no ctx, LOF , VB, DFM. GCT next visit. 07/05/21 -?-?-?-?-?-?-?-?-?-?-?-?- 28w 2d 205 lb (+35 lb) 120/70 Negative -?-?-?-?-?-?-?-?-?-?-?-?- Negative 140 -?-?-?-?-?-?-?-?-?-?-?-?- denies ctx, LoF, VB,DFM. passed glucose, no anemia SM- denies ctx, LoF, VB,DFM. passed glucose, no anemia. patient seen with nursing assistance due to physician needed for emergency elsewhere. 07/18/21 -?-?-?-?-?-?-?-?-?-?-?-?- 30w 1d 210 lb (+40 lb) 110/70 Negative -?-?-?-?-?-?-?-?-?-?-?-?- Negative 139 30 -?-?-?-?-?-?-?-?-?-?-?-?- MH-No Vb, LOF. G ood FM. [facility]. 07/30/21 -?-?-?-?-?-?-?-?-?-?-?-?- 31w 6d 214 lb (+44 lb) 120/82 -?-?-?-?-?-?-?-?-?-?-?-?- 140 32 -?-?-?-?-?-?-?-?-?-?-?-?- Sm- no vb lof go od fm n oreuglar ctx 08/14/21 -?-?-?-?-?-?-?-?-?-?-?-?- 34w 0d 216 lb 12.8 oz (+46 lb 12.8 oz) 131/80 -?-?-?-?-?-?-?-?-?-?-?-?- -?-?-?-?-?-?-?-?-?-?-?-?- 08/16/21 -?-?-?-?-?-?-?-?-?-?-?-?- 34w 2d 218 lb 4 oz (+48 lb 4 oz) 138/84 Negative -?-?-?-?-?-?-?-?-?-?-?-?- Negative 147 34 -?-?-?-?-?-?-?-?-?-?-?-?- JV- no lof, vagi nal bleeding, or dec fm. fell this week and went to triage .strip was great x 2 hrs and was dc'd to home. ROS Constitutional Constitutional: Reports systems reviewed and no addt'l complaints, except as documented Gastrointestinal Gastrointestinal: Denies bloating, constipation, cramping, diarrhea, nausea or vomiting Genitourinary Genitourinary: Reports other Details: Denies vaginal odor, vaginal bleeding, or vaginal discharge ; Denies difficulty urinating or flank pain Physical Exam HEENT normocephalic Resp normal respiratory effort and normal air movement no CVA tenderness Extremity normal to inspection General Extremity: edema bilateral (trace ) NST FHR Rate Baby A Baseline: 125 Variability:: Moderate Accelerations:: 15 x 15 Decelerations:: None NST Reactive:: Yes FHR Category:: Category I Assessment & Plan (1) False labor before 37 completed weeks of gestation: PLAN: Patient presents for triage evaluation secondary to leaking fluid FHT: 125 Moderate variability reactive no decelerations category I tracing [place]: irregular Contractions Assessment and plan: Reactive NST, reassuring maternal and status patient discharged to home to follow-up. See problem list details for additional plan information. Charges/Coding Multi Select Codes Visit Charges Office Visit/Consults: 69647 OV L3 Est Urinary/Genital Urinary/Genital CPT Codes: 15845-05 non-stress test Interp
--- NOTE | 2021-08-22 08:07 | OB.TRI.NOTE ---
HPI - General HPI Narrative RADHA JOSE, is a 35 F who presents to OB triage on 08/14/2021 for assessment of possible rupture of membranes. Maternal Data Information BRANDI Calculator Estimated Delivery Date Method Current WG Current Estimate 09/25/21 LMP (Certain) 35w 1d Other Estimates 09/26/21 Ultrasound #1 35w 0d PFSH PFSH Medical History (Updated 08/22/21 @ 08:[address] Martina Posadas, DO) No significant medical problems Home Medications vit,[id number] 1 tab PO DAILY 10/24/14 [History Last Taken 08/13/21 21:00] Allergy/AdvReac Type Severity Reaction Status Date / Time No Known Allergies Allergy Verified 08/16/21 11:16 Family History Grandfather CAD (coronary artery disease) Mother CAD (coronary artery disease) Grandmother CAD (coronary artery disease) Father Hypertension Grandmother CAD (coronary artery disease) Surgical History No significant past surgical history Social History adopted: No household members: spouse and children number of children: 3 current occupational status: employed 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 Date Name GA/Weeks Outcome Route Bth Weight Infant Gen Labor Lgth Anesthesia Del Locatn Provider FOB 02/21/15 Deric 41 live - full term vacuum 9lbs 2oz Male epidural [facility] Gurpreet [place] 09/07/17 Jones 39 live - full term 8 1 oz Male epidural [facility] 07/20/19 Keri 39 live - full term 7lbs 10oz Male epidural [facility] REGLA Delivery Date: 02/21/15 VAVD 4th degree laceration Kamala Bruner Delivery Date: 09/07/17 2 degree tear Kamala Bruner Delivery Date: 07/20/19 HTN end of . No intervention Jacklyn Silva Visit Details Expected Delivery Route/Plan Labor Preferences- CB/BF classes: [] labor support person: [] labor intervention preferences: [] pain management options preferred: [] cut cord/dad catch: [] : [] PP control planned: [] discussed possible routes of delivery and associated risks: [] special requests: [] Plans covid status: pos 09/27 flu vaccine: [] tdap vaccine: [] rhogam: [] LARC form signed: [] Problem list reviewed and updated with the most current plan of care details and appropriate orders placed. Relevant counseling for the gestational age provided. Continue routine care and follow up unless otherwise noted in visit notes/problem list details OB Flowsheet Initial Weight: 170 lb Date <del>?</del> EGA Weight BP Urine Prot <del>?</del> Glucose FHR FuHt Pres Dilation <del>?</del> Effaced St Visit Note 02/21/21 <del>?</del> 9w 1d 172 lb (+2 lb) 106/80 <del>?</del> 170 <del>?</del> SM- CRL cons with LMP 03/14/21 <del>?</del> 12w 1d 178 lb (+8 lb) 108/80 <del>?</del> 160 <del>?</del> Sm- no vb cramping 04/11/21 <del>?</del> 16w 1d 184 lb (+14 lb) 122/70 Negative <del>?</del> Negative 148 <del>?</del> MH-No Vb, LOF. Passed kidney stone last wk. Denies concerns. 05/10/21 <del>?</del> 20w 2d 190 lb 8 oz (+20 lb 8 oz) 114/82 Negative <del>?</del> Negative 145 <del>?</del> GP - no cramping or bleeding. Anatomy scan nl. It's a boy! 06/21/21 <del>?</del> 26w 2d 199 lb 8 oz (+29 lb 8 oz) 130/72 Negative <del>?</del> Negative 140 26 <del>?</del> GP - no ctx, LOF, VB, DFM. GCT next visit. 07/05/21 <del>?</del> 28w 2d 205 lb (+35 lb) 120/70 Negative <del>?</del> Negative 140 <del>?</del> denies ctx, LoF, VB,DFM. passed glucose, no anemia SM- denies ctx, LoF, VB,DFM. passed glucose, no anemia. patient seen with nursing assistance due to physician needed for emergency elsewhere. 07/18/21 <del>?</del> 30w 1d 210 lb (+40 lb) 110/70 Negative <del>?</del> Negative 139 30 <del>?</del> MH-No Vb, LOF. Good FM. Larc. 07/30/21 <del>?</del> 31w 6d 214 lb (+44 lb) 120/82 <del>?</del> 140 32 <del>?</del> Sm- no vb lof good fm n oreuglar ctx 08/14/21 <del>?</del> 34w 0d 216 lb 12.8 oz (+46 lb 12.8 oz) 131/80 <del>?</del> <del>?</del> 08/16/21 <del>?</del> 34w 2d 218 lb 4 oz (+48 lb 4 oz) 138/84 Negative <del>?</del> Negative 147 34 <del>?</del> JV- no lof, vaginal bleeding, or dec fm. fell this week and went to triage .strip was great x 2 hrs and was dc'd to home. ROS Constitutional Constitutional: Reports systems reviewed and no addt'l complaints, except as documented Gastrointestinal Gastrointestinal: Denies bloating, constipation, cramping, diarrhea, nausea or vomiting Genitourinary Genitourinary: Reports other Details: Denies vaginal odor, vaginal bleeding, or vaginal discharge ; Denies difficulty urinating or flank pain Physical Exam HEENT normocephalic Resp normal respiratory effort and normal air movement no CVA tenderness Extremity normal to inspection General Extremity: edema bilateral (trace ) NST FHR Rate Baby A Baseline: 125 Variability:: Moderate Accelerations:: 15 x 15 Decelerations:: None NST Reactive:: Yes FHR Category:: Category I Assessment & Plan (1) False labor before 37 completed weeks of gestation: PLAN: Patient presents for triage evaluation secondary to leaking fluid FHT: 125 Moderate variability reactive no decelerations category I tracing [place]: irregular Contractions Assessment and plan: Reactive NST, reassuring maternal and status patient discharged to home to follow-up. See problem list details for additional plan information. Charges/Coding Multi Select Codes Visit Charges Office Visit/Consults: 24641 OV L3 Est Urinary/Genital Urinary/Genital CPT Codes: 47402-48 non-stress test Interp
--- NOTE | 2021-08-24 08:50 | OB.TRI.HP_ITS ---
HPI - General HPI Narrative RADHA JOSE, is a 35 F who presents to OB triage with the complaint of falling at home and decreased movement. Maternal Data Information BRANDI Calculator Estimated Delivery Date Method Current WG Current Estimate 09/25/21 LMP (Certain) 35w 3d Other Estimates 09/26/21 Ultrasound #1 35w 2d PFSH PFS Medical History (Updated 08/24/21 @ 08:[address] Martina Posadas, DO) No significant medical problems Home Medications vit,[id number]-ifmqk 1 tab PO DAILY 10/24/14 [History Last Taken 08/13/21 21:00] Allergy/AdvReac Type Severity Reaction Status Date / Time No Known Allergies Allergy Verified 08/16/21 11:16 Family History Grandfather CAD (coronary artery disease) Mother CAD (coronary artery disease) Grandmother CAD (coronary artery disease) Father Hypertension Grandmother CAD (coronary artery disease) Surgical History No significant past surgical history Social History adopted: No household members: spouse and children number of children: 3 current occupational status: employed 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 Date Name GA/Weeks Outcome Route Bth Weight Gen Labor Lgth Anesthesia Del Locatn Provider FOB 02/21/15 Deric 41 live - full term vacuum 9lbs 2oz Male ep idural [facility] Gurpreet [place] 09/07/17 Jones 39 live - full term 8 1 oz Male epidu ral [facility] SM 07/20/19 Keri 39 live - full term 7lbs 10oz Male e pidural [facility] REGLA Delivery Date: 02/21/15 VAVD 4th degree laceration Kamala Bruner Delivery Date: 09/07/17 2 degree tear Kamala Bruner Delivery Date: 07/20/19 HTN end of . No intervention Jacklyn Silva Visit Details Expected Delivery Route/Plan Labor Preferences- CB/BF classes: [] labor support person: [] labor intervention preferences: [] pain management options preferred: [] cut cord/dad catch: [] : [] PP control planned: [] discussed possible routes of delivery and associated risks: [] special requests: [] Plans covid status: pos 09/27 flu vaccine: [] tdap vaccine: [] rhogam: [] LARC form signed: [] Problem list reviewed and updated with the most current plan of care details and appropriate orders placed. Relevant counseling for the gestational age provided. Continue routine care and follow up unless otherwise noted in visit notes/problem list details OB Flowsheet Initial Weight: 170 lb Date -?-?-?-?-?-?-?-?-?-?-?-?- EGA Weight BP Urine Prot -?-?-?-?-?-?-?-?-?-?-?-?- Glucose FHR FuHt Pres Dilation -?-?-?-?-?-?-?-?-?-?-?-?- Effaced St Visit Note 02/21/21 -?-?-?-?-?-?-?--?-?-?-?-?- 9w 1d 172 lb (+2 lb) 106/80 -?-?-?-?-?-?-?-?-?-?-?-?- 170 -?-?-?-?-?-?-?-?-?-?-?-?- SM- CRL cons wit h LMP 03/14/21 -?-?-?-?-?-?-?-?-?-?-?-?- 12w 1d 178 lb (+8 lb) 108/80 -?-?-?-?-?-?-?-?-?-?-?-?- 160 -?-?-?-?-?-?-?--?-?-?-?-?- Sm- no vb crampi ng 04/11/21 -?-?-?-?-?-?-?-?-?-?-?-?- 16w 1d 184 lb (+14 lb) 122/70 Negative -?-?-?-?-?-?-?-?-?-?-?-?- Negative 148 -?-?-?-?-?-?-?-?-?-?-?-?- -No Vb, LOF. P assed kidney stone last wk. Denies concerns. 05/10/21 -?-?-?-?-?-?-?-?-?-?-?-?- 20w 2d 190 lb 8 oz (+20 lb 8 oz) 114/82 Negative -?-?-?-?-?-?-?-?-?-?-?-?- Negative 145 -?-?-?-?-?-?-?-?-?-?-?-?- GP - no cramping or bleeding. Anatomy scan nl. It's a boy! 06/21/21 -?-?-?-?-?-?-?-?-?-?-?-?- 26w 2d 199 lb 8 oz (+29 lb 8 oz) 130/72 Negative -?-?-?-?-?-?-?-?-?-?-?-?- Negative 140 26 -?-?-?-?-?-?-?-?-?-?-?-?- GP - no ctx, LOF , VB, DFM. GCT next visit. 07/05/21 -?-?-?-?-?-?-?-?-?-?-?-?- 28w 2d 205 lb (+35 lb) 120/70 Negative -?-?-?-?-?-?-?-?-?-?-?-?- Negative 140 -?-?-?-?-?-?-?-?-?-?-?-?- denies ctx, LoF, VB,DFM. passed glucose, no anemia SM- denies ctx, LoF, VB,DFM. passed glucose, no anemia. patient seen with nursing assistance due to physician needed for emergency elsewhere. 07/18/21 -?-?-?-?-?-?-?-?-?-?-?-?- 30w 1d 210 lb (+40 lb) 110/70 Negative -?-?-?-?-?-?-?-?-?-?-?-?- Negative 139 30 -?-?-?-?-?-?-?--?-?-?-?-?- MH-No Vb, LOF. G ood FM. Larc. 07/30/21 -?-?-?-?-?-?-?-?-?-?-?-?- 31w 6d 214 lb (+44 lb) 120/82 -?-?-?-?-?-?-?-?-?-?-?-?- 140 32 -?-?-?-?-?-?-?-?-?-?-?-?- Sm- no vb lof go od fm n oreuglar ctx 08/14/21 -?-?-?-?-?-?-?-?-?-?-?-?- 34w 0d 216 lb 12.8 oz (+46 lb 12.8 oz) 131/80 -?-?-?-?-?-?-?-?-?-?-?-?- -?-?-?-?-?-?-?-?-?-?-?-?- TRIAGE VISIT 08/16/21 -?-?-?-?-?-?-?-?--?-?-?-?- 34w 2d 218 lb 4 oz (+48 lb 4 oz) 138/84 Negative -?-?-?-?-?-?-?-?-?-?-?-?- Negative 147 34 -?-?-?-?-?-?-?-?-?-?-?-?- JV- no lof, vagi nal bleeding, or dec fm. fell this week and went to triage .strip was great x 2 hrs and was dc'd to home. ROS Constitutional Constitutional: Reports systems reviewed and no addt'l complaints, except as documented Gastrointestinal Gastrointestinal: Denies bloating, constipation, cramping, diarrhea, nausea or vomiting Genitourinary Genitourinary: Reports other Details: Denies vaginal odor, vaginal bleeding, or vaginal discharge ; Denies difficulty urinating or flank pain Physical Exam HEENT normocephalic Resp normal respiratory effort and normal air movement no CVA tenderness Extremity normal to inspection General Extremity: edema bilateral (trace ) NST FHR Rate Baby A Baseline: 120 Variability:: Moderate Accelerations:: 15 x 15 Decelerations:: None NST Reactive:: Yes FHR Category:: Category I Assessment & Plan (1) False labor before 37 completed weeks of gestation: (2) Trauma during : PLAN: no signs of abruption after monitoring x 2 hrs. NST reactive without decelerations. Cat 1 tracing ok to dc to home. Charges/Coding Multi Select Codes Visit Charges Office Visit/Consults: 72269 OV L3 Est Urinary/Genital Urinary/Genital CPT Codes: 80216-60 non-stress test Interp
== END 2021-08-14 23:22 | disposition home or self-care (01) ==
LOC: WPOUT 21:02 → WP 21:02
PROVIDERS: PCP Internal Medicine; Visit Provider Obstetrics & Gynecology
DX: O47.03 False labor before 37 completed weeks of gestation, third trimester (principal); Z3A.35 35 weeks gestation of pregnancy; Z87.59 Personal history of other complications of pregnancy, childbirth and the puerperium
CPT/HCPCS: 59025; 59050; 84112; 99218; G0378

== ENCOUNTER → 2021-08-29 | Outpatient (CLI) | payer OTHER, SELFPAY | END | disposition home or self-care (01) | LOC: LABSPEC 13:17 | PROVIDERS: PCP Internal Medicine; Visit Provider Obstetrics & Gynecology | DX: Z34.80 Encounter for supervision of other normal pregnancy, unspecified trimester (principal) | CPT/HCPCS: 87081 ==

== ENCOUNTER 2021-09-12 14:56 | Outpatient (CLI) | payer OTHER, SELFPAY | END 2021-09-12 23:59 | disposition home or self-care (01) | LOC: LABSPEC 14:57 | PROVIDERS: PCP Internal Medicine; Visit Provider Obstetrics & Gynecology | DX: Z34.80 Encounter for supervision of other normal pregnancy, unspecified trimester (principal) | CPT/HCPCS: 87635; U0003; U0005 ==

== ENCOUNTER 2021-09-19 07:15 | Inpatient (IN) | payer OTHER, SELFPAY ==
[2021-09-19] VITALS (41 sets, daily range): BP systolic 118–145; BP diastolic 65–102; PULSE 70–91; RESP 18; TEMP 35.7–36.6; O2SAT 99–100; BMI 34.4
[2021-09-19] MEDS: Lactated Ringers 1,000 ML 50 ML IV (08:10)
[2021-09-19] MEDS: Oxytocin 30 units/NS 500 ml 30 UNITS/500 ML IV.SOLN IV (08:26)
[2021-09-19 08:29] LABS: Absolute Lymphocyte Count 2.13 X10^3/uL (0.83-4.51); Absolute Neutrophil Count 6.8 X10^3/uL (2.0-7.7); Basophil# 0.02 X10^3/uL; Basophil% 0.2 % (0-1); Eosinophil# 0.05 X10^3/uL; Eosinophils% 0.5 % (0-5); Hematocrit 34.8 % (37-47); Hemoglobin 11.7 g/dL (12.0-15.0); Lymphocyte # 2.13 X10^3/ul (0.83-4.51); Lymphocyte % 22.5 % (19-41); Mean Corp Hgb Conc 33.6 g/dL (32-36); Mean Corpuscular Hgb 28.5 pg (27.0-32.0); Mean Corpuscular Volume 84.9 fL (81-99); Mean Platelet Vol. 11.2 fl (6.2-12.0); Monocyte# 0.44 X10^3/uL; Monocyte% 4.6 % (0-10); NRBC Flagged by Analyzer 0 % (0-5); Neutrophil # 6.75 X10^3/uL (2.7-7.7); Neutrophil % 71.4 % (47-70); Platelet Count 144 K/mm3 (150-450); RBC Distribution Width CV 13.3 % (11.6-14.6); White Blood Count 9.5 K/mm3 (4.4-11.0)
[2021-09-19] MEDS: 0.9% Normal Saline Single 100 ML IV.SOLN. INTRA-UTER (08:49)
[2021-09-19] MEDS: Lactated Ringers 500 ML 999 ML IV (10:22)
[2021-09-19] MEDS: fentaNYL-bupivacaine (epidural) 100 ML BAG EPIDURAL ×2 (11:21→15:29)
[2021-09-19] MEDS: Lactated Ringers 1,000 ML 200 ML IV (13:40)
--- NOTE | 2021-09-19 14:59 | HP.PCM_ITS ---
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 Is patient in pain?: No Allergies No Known Allergies Allergy (Verified 09/12/21 11:39) Medications vit,[id number]-fplb-cswny 1 tab PO DAILY 10/24/14 [History Confirmed 09/12/21] Last Menstral Period: 12/19/20 Zika: Zika virus screening: Negative : No [facility] Medical History (Updated 09/12/21 @ 11:40 by Jami Banegas) No significant medical problems Surgical History No significant past surgical history Family History Grandfather CAD (coronary artery disease) Mother CAD (coronary artery disease) Grandmother CAD (coronary artery disease) Father Hypertension Grandmother CAD (coronary artery disease) Social History adopted: No household members: spouse and children number of children: 3 current occupational status: employed 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 Date Name GA/Weeks Outcome Route Bth Weight Infant Gen Labor Lgth Anesthesia Del Locatn Provider FOB 02/21/15 Deric 41 live - full term vacuum 9lbs 2oz Male epidural [facility] Gurpreet [place] 09/07/17 Robert 39 live - full term 8 1 oz Male epidural [facility] 07/20/19 Keri 39 live - full term 7lbs 10oz Male epidural [facility] REGLA Delivery Date: 02/21/15 VAVD 4th degree laceration Kamala Bruner Delivery Date: 09/07/17 2 degree tear Kamala Bruner Delivery Date: 07/20/19 HTN end of . No intervention Jacklyn Silva HPI 38WK OB/ok per SM Details: RADHA JOSE is a 35 year old who presents for routine OB visit. OB Visit BRANDI Calculator Estimated Delivery Date Method Current WG Current Estimate 09/25/21 LMP (Certain) 38w 1d Other Estimates 09/26/21 Ultrasound #1 38w 0d Expected Delivery Route/Plan plan IOL 39 Labor Preferences- CB/BF classes: [] labor support person: [] labor intervention preferences: [] pain management options preferred: [] cut cord/dad catch: [] : [] PP control planned: [] discussed possible routes of delivery and associated risks: [] special requests: [] Specific Issue/Plans covid status: pos 09/27 flu vaccine: [] tdap vaccine: [] rhogam: [] LARC form signed: [] Problem list reviewed and updated with the most current plan of care details and appropriate orders placed. Relevant counseling for the gestational age provided. Continue routine care and follow up unless otherwise noted in visit notes/problem list details Initial Weight: 170 lb Date EGA Weight BP Urine Prot Glucose FHR FuHt Pres Dilation Effaced St Visit Note 02/21/21 9w 1d 172 lb (+2 lb) 106/80 170 SM- CRL cons with LMP 03/14/21 12w 1d 178 lb (+8 lb) 108/80 160 Sm- no vb cramping 04/11/21 16w 1d 184 lb (+14 lb) 122/70 Negative Negative 148 MH-No Vb, LOF. Passed kidney stone last wk. Denies concerns. 05/10/21 20w 2d 190 lb 8 oz (+20 lb 8 oz) 114/82 Negative Negative 145 GP - no cramping or bleeding. Anatomy scan nl. It's a boy! 06/21/21 26w 2d 199 lb 8 oz (+29 lb 8 oz) 130/72 Negative Negative 140 26 GP - no ctx, LOF, VB, DFM. GCT next visit. 07/05/21 28w 2d 205 lb (+35 lb) 120/70 Negative Negative 140 denies ctx, LoF, VB,DFM. passed glucose, no anemia SM- denies ctx, LoF, VB,DFM. passed glucose, no anemia. patient seen with nursing assistance due to physician needed for emergency elsewhere. 07/18/21 30w 1d 210 lb (+40 lb) 110/70 Negative Negative 139 30 MH-No Vb, LOF. Good FM. Larc. 07/30/21 31w 6d 214 lb (+44 lb) 120/82 140 32 Sm- no vb lof good fm n oreuglar ctx 08/14/21 34w 0d 216 lb 12.8 oz (+46 lb 12.8 oz) 131/80 TRIAGE VISIT 08/16/21 34w 2d 218 lb 4 oz (+48 lb 4 oz) 138/84 Negative Negative 147 34 JV- no lof, vaginal bleeding, or dec fm. fell this week and went to triage .strip was great x 2 hrs and was dc'd to home. 08/29/21 36w 1d 216 lb 2 oz (+46 lb 2 oz) 134/86 Negative Negative 140 35 0 50 JV- no lof ,vaginal bleeding, or dec fm. GBS collected. 09/05/21 37w 1d 220 lb 4 oz (+50 lb 4 oz) 138/86 Negative Negative 140 38 1 SM- no vb lof good fm nor egular ctx 09/12/21 38w 1d 220 lb (+50 lb) 120/82 Negative Negative 140 39 2 60 -2 SM- no vb lof good fm no regular ctx ACOG First Trimester First Trimester: Discussed Second Trimester Second Trimester: Signs and Symptoms of Labor, Selecting a care provider, Reproductive Life Planning & Contreception, Care Planning, Depression/Anxiety and Intimate Partner Violence; Discussed Tobacco Cessation Third Trimester Third Trimester: Pain Management Plans, Labor support person(s), Movement Monitoring, Signs and Symptoms of Preeclampsia, Labor Signs, Postterm Counseling, [place] Education, Family Medical Leave or Disability Forms, Depression and Depression; Discussed Trial of Labor after Counseling, Discussed Tobacco Cessation and Discussed Intimate Partner Violence Diagnostics Diagnostics Diagnostics: No Data to Display Details: HIV: Urine Culture: Sequential Screen: NIPT Screen: ROS: General: negative Broker Associate: see hpi GI: otherwise negative unless documented in hpi Exam Const General: cooperative, healthy appearing, comfortable HENMT Head: normal to inspection Nose: external nose normal Face and sinus: normal facial exam Neck Neck: normal visual inspection, full ROM, no lymphadenopathy Thyroid: thyroid normal Chest Chest palpation & inspection: normal inspection of the chest Resp Effort & Inspection: normal respiratory effort GI Inspection: normal to inspection Palpation: soft, other (gravid uterus) Other: vertex and appropriate size for gestational age Other: Cervical Exam: /-2 Extrem General: pedal edema Results POC Urinalysis 2 Dip (Clinic) Office Urine Glucose Negative Last Edit by Jami Banegas on 09/12/21 11:44 Office Urine Protein Negative Last Edit by Jami Banegas on 09/12/21 11:44 Coding Level of Care Code OB Routine Diagnoses Kidney stone N20.0 History of gestational hypertension Z87.59 Supervision of other normal Z34.80 History of COVID-19 Z86.16 Z3A.38 Weeks of gestation: 38 weeks History of maternal fourth degree perineal laceration, currently O09.299 Assessment and Plan Assessment and Plan (1) Kidney stone: Status: Acute Comment: passed at home 04/06 (2) History of gestational hypertension: Status: Acute Comment: nl baseline labs with NOB and at 28 wk (3) Supervision of other normal : Status: Acute Comment: PRR BRANDI 09/23/21 boy PC: Robert Leos Payton Spouse: Bolivar. Orders: Orders: COVID 19, PCR [facility] [place](RT COLLECT) Today (4) History of COVID-19: Status: Acute Comment: 09/2020 prior to (5) : Status: Acute Qualifiers: Weeks of gestation: 38 weeks Qualified Code(s): Z3A.38 - 38 weeks [address] station of Comment: Declines carrier, ntd, and genetic screen, anatomy nl; GBS NEG (6) History of maternal fourth degree perineal laceration, currently : Status: Acute Comment: 1st . nonrecurrent with 2nd and third. had declined primary . plan IOL 39 Plan Details Other Orders: Orders: POC Urinalysis 2 Dip (Clinic) Today Goals & Barriers: Goals Decrease pain Decrease spasm Balance sacrum Barriers Caring for small children UPDATE- I have seen the patient and performed any clinically relevant updates to the history and physical exam. Verenice Mendez MD
[2021-09-19] MEDS: Oxytocin 30 units/NS 500 ml 30 UNITS/500 ML IV.SOLN 334 UNITS IV (16:20)
--- NOTE | 2021-09-19 16:45 | EX.PCM.OBRPT ---
Assessment & Plan (1) Kidney stone: COMMENT: passed at home 04/06 (2) History of gestational hypertension: COMMENT: nl baseline labs with NOB and at 28 wk (3) Supervision of other normal : COMMENT: PRR BRANDI 09/23/21 boy PC: Robert Leos Payton Spouse: Bolivar. (4) History of COVID-19: COMMENT: 09/2020 prior to (5) : QUALIFIERS: Weeks of gestation: 38 weeks Qualified Code(s): Z3A.38 - 38 weeks gestation of COMMENT: Declines carrier, ntd, and genetic screen, anatomy nl; GBS NEG (6) History of maternal fourth degree perineal laceration, currently : COMMENT: 1st . nonrecurrent with 2nd and third. had declined primary . plan IOL 39 (7) Vaginal delivery: COMMENT: SM IOL 39 boy [place] Maternal Data Information BRANDI Calculator Estimated Delivery Date Method Current WG Current Estimate 09/25/21 LMP (Certain) 39w 1d Other Estimates 09/26/21 Ultrasound #1 39w 0d Vaginal Delivery Operative Information Date of Procedure: 09/19/21 Pre-Operative Diagnosis: IOL Post-Operative Diagnosis: same Surgery / Procedure Performed: Spontaneous Vaginal Delivery Type of Anesthesia: Epidural Special Medications: none Estimated Blood Loss: 100 Fluids Replaced: crystalloid Findings Description of Procedure: Patient began pushing and delivered the head in the DEBORA presentation. The head was delivered atraumatically . The anterior and posterior shoulders delivered without complication followed by the rest of the and the infant was placed on the maternal abdomen. Delayed cord clamping was employed for approximately 60 seconds. Cord was clamped and cut and gentle traction was applied to the cord and the placenta delivered spontaneously immediately following it was noted to be intact with three-vessel cord. The perineum and vagina were inspected and 1st degree laceration repaired in the usual fashion with 3-0 rapide. EBL was 300 cc. Patient and infant tolerated delivery well. Presentation: DEBORA Amniotic Membrane Rupture Type: Artificial Amniotic Fluid Description: Clear Placental Delivery Description: Spontaneous Placenta Disposition: [facility] Cord Vessel Description: 3 Vessels Cord Entanglement: None Delayed Cord Clamping: Yes Post Vaginal Delivery Medications Given After Delivery: IV Pitocin Episiotomy Description: None Laceration: None Complication Complications: None Procedures Urinary/Genital [id number]: [id number] Vaginal Delivery global pkg
--- NOTE | 2021-09-19 16:47 | PCM.DC ---
Discharge Instructions Diet Discharge Diet: No restrictions Activity Discharge Activity: Return to Normal Activity, May Not Drive (while taking narcotic pain medications.) and May Shower May resume sexual activity in: 4-6 weeks Dressing / Incision Call your doctor if your incision/area has: Continuous Slow Oozing, Sudden Increased Bleeding, Increased Pain/ Swelling, Increased Redness and Foul Smelling Discharge Follow Up Care Please Follow Up With: Verenice Mendez MD When: Call [phone] to make an appointment with your doctor in 6 weeks. If you had elevated blood pressure or 4th degree laceration, you will need to be seen in 2 weeks. Test Results: Test results from this visit will be discussed in further detail at your follow-up appointment, if applicable. Discharge Plan Admission Admit Date/Time: 09/19/21 07:15 Attending Provider: Martina Posadas Primary Care Provider: Leonard Machuca Discharge Orders/Prescriptions Prescriptions: No Action vit,[id number] 1 TABLET tablet 1 tab PO DAILY RF: 0
[2021-09-19] MEDS: 0.9% Saline Lock 10 ML Syringe IV (18:47)
[2021-09-19] MEDS: Naproxen 500 MG Tablet PO (19:37)
[2021-09-19] MEDS: Acetaminophen 500 MG Tablet 1000 MG PO (23:24)
[2021-09-20 04:08] VITALS: BP 110/78; PULSE 82; RESP 16
[2021-09-20] MEDS: Naproxen 500 MG Tablet PO ×2 (04:09→11:15)
[2021-09-20 09:06] VITALS: BP 126/79; PULSE 75; RESP 16; TEMP 36.4; O2SAT 98
[2021-09-20] MEDS: Acetaminophen 500 MG Tablet 1000 MG PO (09:36)
[2021-09-20 11:01] VITALS: BP 122/78; PULSE 75; RESP 16; TEMP 36.5; O2SAT 98
--- NOTE | 2021-09-20 17:23 | PCM.PN.OB ---
Subjective Subjective Patient doing well without complaints. Tolerating PO. Ambulating and voiding without difficulty. feeding well. Denies chest pain, shortness of breath, calf pain/swelling, fevers, chills, lightheadedness. Objective Data Objective Data Vital Signs: Vital Signs Temp Pulse Resp BP Pulse Ox 97.7 F L 75 16 122/78 H 98 09/20/21 11:01 09/20/21 11:01 09/20/21 11:01 09/20/21 11:01 09/20/21 11:01 Oxygen Delivery Method Room Air Weight: 220 lb 3.869 oz Body Mass Index (BMI) 34.4 Intake & Output: Intake and Output for Last 24 Hours 09/18/21 09/19/21 09/20/21 23:59 23:59 23:59 Intake Total 2841.63 / 2841.63 Output Total 2200 / 2200 Balance 641.63 / 641.63 Lab / Micro Data Result Diagrams: 09/19/21 08:10 ROS Constitutional Constitutional: Reports systems reviewed and no addt'l complaints, except as documented Cardiovascular Cardiovascular: Reports systems reviewed and no addt'l complaints, except as documented Respiratory/Chest Respiratory/Chest: Reports systems reviewed and no addt'l complaints, except as documented Gastrointestinal Gastrointestinal: Reports systems reviewed and no addt'l complaints, except as documented Physical Exam Const alert, oriented x3 and no apparent distress HEENT Head and Scalp: atraumatic Resp normal respiratory effort GI soft to palpation and non-tender Bimanual Exam - Vag & Uterus: uterus non-tender Uterus Palpation: uterus fundus firm (below Umbilicus) Assessment & Plan (1) Vaginal delivery: COMMENT: MERI IOL 40 boy Jameson
[2021-09-20 18:25] VITALS: BP 136/86; PULSE 79; RESP 16; TEMP 35.9; O2SAT 98
== END 2021-09-20 18:45 | disposition home or self-care (01) | DRG 807 ==
PROVIDERS: Obstetrics & Gynecology; Admitting Provider Obstetrics & Gynecology; PCP Internal Medicine; Referring Provider Obstetrics & Gynecology; Visit Provider Obstetrics & Gynecology
DX: O70.0 First degree perineal laceration during delivery (principal); Z37.0 Single live birth; Z3A.38 38 weeks gestation of pregnancy; Z86.16 Personal history of COVID-19
CPT/HCPCS: 59025; 59050; 85025; 86850; 86900; 86901; 99218; J7120; A4216; G0378

== ENCOUNTER 2021-10-31 13:10 | Outpatient (CLI) | payer OTHER, SELFPAY ==
[2021-11-04 20:20] LABS: HPV APTIMA, High Risk Negative (Negative)
== END 2021-10-31 23:59 | disposition home or self-care (01) ==
LOC: LABSPEC 13:10
PROVIDERS: PCP Internal Medicine; Visit Provider Obstetrics & Gynecology
DX: Z12.4 Encounter for screening for malignant neoplasm of cervix (principal)
CPT/HCPCS: 87624; 88175; G0145

== ENCOUNTER → 2022-11-26 | Outpatient (CLI) | payer OTHER, SELFPAY ==
[2022-11-26 15:18] LABS: Absolute Lymphocyte Count 3.43 X10^3/uL (0.83-4.51); Absolute Neutrophil Count 4.3 X10^3/uL (2.0-7.7); Basophil# 0.03 X10^3/uL; Basophil% 0.4 % (0-1); Eosinophil# 0.13 X10^3/uL; Eosinophils% 1.5 % (0-5); Hematocrit 47.8 % (37-47); Hemoglobin 16.5 g/dL (12.0-15.0); Lymphocyte # 3.43 X10^3/ul (0.83-4.51); Lymphocyte % 40.8 % (19-41); Mean Corp Hgb Conc 34.5 g/dL (32-36); Mean Corpuscular Hgb 29.8 pg (27.0-32.0); Mean Corpuscular Volume 86.4 fL (81-99); Mean Platelet Vol. 10.4 fl (6.2-12.0); Monocyte% 5.9 % (0-10); NRBC Flagged by Analyzer 0 % (0-5); Neutrophil % 51.2 % (47-70); Platelet Count 275 K/mm3 (150-450); RBC Distribution Width CV 12.7 % (11.6-14.6); RBC Distribution Width SD 39.7 fl (35.1-43.9); Red Blood Count 5.53 M/mm3 (4.2-5.4); White Blood Count 8.4 K/mm3 (4.4-11.0)
[2022-11-26 16:11] LABS: Thyroid Stim Hormone (TSH) 1.93 uIU/mL (0.358-3.74)
== END | disposition home or self-care (01) ==
LOC: PAVLAB 14:59
PROVIDERS: PCP Internal Medicine; Referring Provider Obstetrics & Gynecology; Visit Provider Obstetrics & Gynecology
DX: N93.9 Abnormal uterine and vaginal bleeding, unspecified (principal)
CPT/HCPCS: 36415; 84443; 85025

== ENCOUNTER → 2023-01-02 | Outpatient (CLI) | payer OTHER, SELFPAY | END | disposition home or self-care (01) | LOC: LABSPEC 16:52 | PROVIDERS: PCP Internal Medicine; Referring Provider Advanced Practice Midwife; Visit Provider Advanced Practice Midwife | DX: Z01.411 Encounter for gynecological examination (general) (routine) with abnormal findings (principal) ==

== ENCOUNTER 2023-01-06 15:18 | Outpatient (CLI) | payer OTHER, SELFPAY ==
--- NOTE | 2023-01-06 15:20 | US_ITS ---
STUDY: ULTRASOUND OF THE FEMALE PELVIS - COMPLETE REASON FOR EXAM: Female, 37 years old. IUD location. LMP: December 14, 2022 TECHNIQUE: Transvaginal TECHNICAL QUALITY: Adequate. COMPARISON: CT of the abdomen and pelvis, January 13, 2018. FINDINGS: The uterus is anteverted and retroflexed and is in a midline position. The uterus measures 7.9 x 5.2 x 4.1 cm. There is a Nabothian cyst of the cervix. The endometrium measures 5.4 mm in thickness, and is hyperechoic. There is no demonstrated endometrial mass. There is no demonstrated myometrial mass. There is an IUD position in the fundal endometrium. The right ovary is visualized. The right ovary measures 3.9 x 3.5 x 2.9 cm. There are multiple follicles of the right ovary without a dominant cyst. There is no visualized right adnexal mass or complex lesion. There is normal arterial and normal venous vascularity. The left ovary is visualized. The left ovary measures 3.4 x 2.9 x 2.0 cm. There are multiple follicles of the left ovary with a large hyperechoic focus with internal calcifications and shadowing. This measures 2.1 x 2.4 x 1.8 cm.. There is no visualized left adnexal mass or complex lesion. There is normal arterial and normal venous vascularity. There is minimal fluid in the cul-de-sac. Urinary bladder isn''t visualized. Polycystic ovary disease: No. US/Transvaginal Non- IMPRESSION: 1. IUD in satisfactory position. 2. Echogenic focus containing central calcifications in the left ovary this was not present on the prior study. Question complex cyst versus solid mass. This is most likely benign in a patient of this age group but would be better defined on contrast MRI. 3. Minimal free fluid, thought to be physiologic. Electronically Signed: Brian Rasheed DO at 21:12 EDT ,
== END 2023-01-06 23:59 | disposition home or self-care (01) ==
LOC: US 15:19
PROVIDERS: PCP Internal Medicine; Referring Provider Advanced Practice Midwife; Visit Provider Advanced Practice Midwife
DX: Z30.431 Encounter for routine checking of intrauterine contraceptive device (principal); R10.2 Pelvic and perineal pain
CPT/HCPCS: 76830

== ENCOUNTER → 2023-01-09 | Outpatient (CLI) | payer OTHER, SELFPAY | END | disposition home or self-care (01) | LOC: LABSPEC 16:47 | PROVIDERS: PCP Internal Medicine; Referring Provider Advanced Practice Midwife; Visit Provider Advanced Practice Midwife | DX: R10.2 Pelvic and perineal pain (principal) | CPT/HCPCS: 87070; 87077; 87086; 87088; 87186; 87205 ==

== ENCOUNTER → 2023-04-13 | Outpatient (CLI) | payer OTHER, SELFPAY | END | disposition home or self-care (01) | LOC: LABSPEC 15:21 | PROVIDERS: PCP Internal Medicine; Referring Provider Obstetrics & Gynecology; Visit Provider Obstetrics & Gynecology | DX: R10.2 Pelvic and perineal pain (principal) | CPT/HCPCS: 87070; 87205 ==

== ENCOUNTER 2023-04-29 17:49 | Emergency (ER) | payer OTHER, SELFPAY ==
[2023-04-29 17:50] VITALS: BP 119/84; PULSE 72; RESP 18; TEMP 36.6; O2SAT 100; BMI 29.5
--- NOTE | 2023-04-29 18:17 | EDS_ITS ---
HPI HPI - Female History of Present Illness Chief Complaint: Abd Pain Narrative Narrative: 37-year-old female presenting with right-sided flank pain. She also complains of dysuria. She was seen in urgent care on Thursday and they did a urine culture and started on Bactrim and Pyridium. She states she still having the flank pain. She still having dysuria. Culture came back positive for E. coli and it was sensitive to Bactrim. Patient also states she has history of ovarian cyst, recurrent UTIs, kidney stones in the past. States he is not doing much better. Patient states she has not any fevers or chills. Patient does not have any nausea. Patient denies constipation or diarrhea. [facility] Medical History (Updated 04/29/23 @ 20:[address] Tushar Roman, DO) No significant medical problems Home Medications multivitamin 1 tab PO DAILY 11/24/22 [History Last Taken Unknown] desogestrel 0.15 mg-ethinyl estradiol 0.03 mg tablet (Apri) 1 tab PO QDAY #28 tabs 04/20/23 [Rx Last Taken Unknown] hydrocodone-acetaminophen 5-325mg 5mg-325mg 1 tab PO Q6H PRN PRN Pain 3 days #12 TABLETS 04/29/23 [Rx Last Taken Unknown] ondansetron 4 mg disintegrating tablet 4 mg PO Q8H PRN PRN Nausea #14 tabs 04/29/23 [Rx Last Taken Unknown] Allergy/AdvReac Type Severity Reaction Status Date / Time No Known Allergies Allergy Verified 04/29/23 17:52 Family History Grandfather CAD (coronary artery disease) Mother CAD (coronary artery disease) Grandmother CAD (coronary artery disease) Father Hypertension Grandmother CAD (coronary artery disease) Surgical History No significant past surgical history Social History adopted: No household members: spouse and children number of children: 3 current occupational status: employed 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 pets and animals: No history of recent travel: No Smoking Status: Never smoker second hand exposure: No alcohol intake: never substance use type: does not use caffeine: Yes Type: coffee Number of servings: 1 what type of physical activity do you participate in: walking frequency: 3-4 times per week seatbelt use: always additional social history: [place] [facility] [facility] ED Constitutional Constitutional ED: Denies chills, fever(s) or sweats Eyes Eyes: Denies blurry vision or change in vision ENT ENT ED: Denies ear pain or sore throat Cardiovascular Cardiovascular: Denies chest pain, palpitations or racing heartbeat Respiratory/Chest Respiratory/Chest: Denies cough, dyspnea or sputum Gastrointestinal Gastrointestinal: Reports abdominal pain and nausea; Denies constipation, diarrhea or vomiting Genitourinary Genitourinary ED: Reports dysuria and urinary frequency; Denies hematuria Musculoskeletal Musculoskeletal: Reports other Details: Right flank pain ; Denies arthralgias, myalgias or neck pain Integumentary Denies abscess, Abrasions or rash Neurologic Neurologic: Denies headache(s), paresthesias or weakness Psychiatric Psychiatric: Denies anxiety, depression, suicidal ideation or suicidal thoughts Endocrine Endocrinology: Denies polydipsia or polyuria EXAM Physical Exam Const Vital Signs: 04/29/23 17:50 04/29/23 20:00 Temperature 97.8 F Temperature Source Temporal Pulse Rate 72 Respiratory Rate 18 16 Blood Pressure 119/84 H Blood Pressure Mean 95 Pulse Ox 100 Oxygen Delivery Method Room Air Positive well nourished General Appearance ED: NAD HEENT Reports moist mucous membranes Eyes PERRL and EOMs intact bilaterally Neck no lymphadenopathy Resp normal respiratory effort and clear to auscultation bilaterally Cardio regular rate and regular rhythm GI normal to inspection, nondistended, normoactive bowel sounds Palpation: Negative for tender, guarding or rigid Back/Spine no CVA tenderness Extremity normal to inspection Neuro oriented x3 and CN's II-XII intact bilaterally Sensorium / Orientation: alert Motor Exam: strength 5/5 throughout Psych mental status grossly normal Mood & Affect: tearful MDM MDM MDM Narrative Medical decision making narrative: Patient presenting with right flank pain. Currently she does not have any CVA tenderness or abdominal pain. She has dysuria and urinary frequency with a positive urine culture for E. coli and she has been on Bactrim which should be sensitive to. I did look up this culture and this is correct. Differential includes kidney stones, UTI, pyelonephritis, appendicitis, , dehydration, electrolyte abnormalities, colitis, ovarian cyst. CBC will be obtained to assess white blood cell count, hemoglobin, platelets. BMP to assess renal function and electrolytes. Urinalysis will be obtained as well. hCG to assess for . CT of the abdomen pelvis will be obtained to rule out kidney stone. Patient declines analgesia initially but then states she will take Toradol. CBC and BMP are unremarkable. Urinalysis negative. I did obtain a CT of the abdomen pelvis without contrast rule out kidney stone it does appear that she has 3 partially obstructing distal UVJ stone with the largest being 7 mm on the right. She does not have excruciating pain its been tolerable. Since her urinalysis is negative I will give her follow-up with urology. She is given Fowler and Zofran for pain and nausea. I did also tell her about the dermoid cyst on the left and she states she is already aware of this. Return precautions were discussed. Impression: 1. Ureteral calculi 2. Right flank pain 3. Dermoid cyst Lab Data Attestation: I reviewed the patient's lab results. Labs: Laboratory Results - last 24 hr 04/29/23 18:20 WBC 6.4 RBC 4.53 Hgb 13.6 Hct 39.2 MCV 86.5 MCH 30.0 MCHC 34.7 RDW Std Deviation 39.5 RDW Coeff of Michelle 12.4 Plt Count 219 MPV 10.5 Immature Gran % (Auto) 0.300 Neut % (Auto) 47.1 Lymph % (Auto) 44.0 H [place] % (Auto) 7.2 Eos % (Auto) 1.1 Baso % (Auto) 0.3 Absolute Neuts (auto) 3.0 Absolute Lymphs (auto) 2.81 Nucleated RBC % 0 Sodium 139 Potassium 3.7 Chloride 108 H Carbon Dioxide 26.0 Anion Gap 5 BUN 19 H Creatinine 1.10 H Estim Creat Clear Calc 61.05 Est GFR (MDRD) Af Amer 72 Est GFR (MDRD) Non-Af 60 BUN/Creatinine Ratio 17.3 Glucose 84 Calcium 8.6 Urine Color Yellow Urine Clarity Clear Urine pH 6.5 Ur Specific [place] 1.010 Urine Protein Negative Urine Glucose (UA) Normal Urine Ketones Negative Urine Occult Blood Negative Urine Nitrite Negative Urine Bilirubin Negative Urine Urobilinogen Normal Ur Leukocyte Esterase Negative Urine RBC 0 SEEN Urine WBC 0 SEEN Ur Squamous Epith Cells 0 SEEN Urine Bacteria 0 SEEN Urine Mucus 0 SEEN Urine Test Negative Radiography Diagnostic Testing: Clinical Impression(s) from Imaging Studies Abdomen/Pelvis CT 04/29/23 18:20 IMPRESSION: 3 partially obstructing distal right ureteral calculi, the largest 7 mm calculus at the UVJ. 2.3 cm dermoid cyst left adnexa. Recommend gynecological consultation. Electronically Signed: Hussein Dubois MD at 20:02 EDT , Discharge Plan Triage Chief Complaint: Abd Pain ED Provider: Tushar Roman Dx/Rx/DC Orders Instructions: ED Kidney Stone w/ Colic Prescriptions: New hydrocodone-acetaminophen 5-325 mg tablet 1 tab PO Q6H PRN PRN (Reason: Pain) 3 Days Qty: 12 0RF ondansetron 4 mg tablet,disintegrating 4 mg PO Q8H PRN PRN (Reason: Nausea) Qty: 14 0RF No Action multivitamin Tablet 1 tab PO DAILY desogestrel-ethinyl estradiol [Apri] 0.15-0.03 mg tablet 1 tab PO QDAY Qty: 28 12RF Primary Care Provider: Leonard Machuca Referrals: Leonard Machuca MD [Primary Care Provider] - Zaynab Acuña MD [Med Staff - Active Staff] - 3-5 Days Disposition Disposition: Home, Self Care Discharge Date/Time: 04/29/23 21:01
--- NOTE | 2023-04-29 18:20 | CT_ITS ---
INDICATION: right flank pain EXAMINATION: CT ABDOMEN AND PELVIS WITHOUT CONTRAST - CT Abdomen And Pelvis W/O Contrast Injection TECHNIQUE: Helically acquired images were obtained of the abdomen and pelvis without oral or IV contrast. A radiation dose optimization technique was used for this scan. IV Contrast dosage and agent: None. Oral contrast: None. COMPARISON: 01/13/2018 FINDINGS: LOWER CHEST: Lung bases are clear. No cardiomegaly or pericardial effusion. LIVER: Homogeneous. No focal mass. GALLBLADDER AND BILIARY TREE: No calcified gallstones. No gallbladder distension or wall edema. No intra- or extrahepatic biliary ductal dilation. PANCREAS: No focal cystic or solid mass. SPLEEN: Normal size without focal cystic or solid mass. ADRENAL GLANDS: No nodules. KIDNEYS AND URETERS: Bilateral nonobstructing nephrolithiasis. Right hydroureteronephrosis with 3 calculi in the distal right ureter, the largest is 7 mm at the UVJ and the more proximal calculi in the distal ureter measure 2 and 3 mm. PERITONEUM: No ascites or free air. BOWEL: Normal appendix. No stomach or bowel distension. No focal inflammatory change. LYMPH NODES: No enlarged mesenteric or retroperitoneal lymph nodes. VESSELS: Aorta is non-dilated. URINARY BLADDER: Unremarkable. REPRODUCTIVE ORGANS: Left adnexal lesion containing fat density, calcification and soft tissue measuring 2.3 x 2.2 x 2.1 cm. ABDOMINAL WALL: Small fat-containing umbilical hernia. BONES: Unremarkable. CT/Abdomen/Pelvis without Cont IMPRESSION: 3 partially obstructing distal right ureteral calculi, the largest 7 mm calculus at the UVJ. 2.3 cm dermoid cyst left adnexa. Recommend gynecological consultation. Electronically Signed: Hussein Dubois MD at 20:02 EDT ,
[2023-04-29 18:24] LABS: Bacteria 0 SEEN /hpf (None Seen); Mucous, Urine 0 SEEN /hpf (<or=2+); Red Blood Cells-Urine 0 SEEN /hpf (0-5); Squamous Epithelial Cells - UA 0 SEEN /hpf (5-10); White Blood Cells 0 SEEN /hpf (0-5)
[2023-04-29 18:26] LABS: Absolute Lymphocyte Count 2.81 X10^3/uL (0.83-4.51); Basophil# 0.02 X10^3/uL; Basophil% 0.3 % (0-1); Color, Urine Yellow (Yellow); Eosinophil# 0.07 X10^3/uL; Eosinophils% 1.1 % (0-5); Glucose, Dipstick Normal (Normal); Hematocrit 39.2 % (37-47); Hemoglobin 13.6 g/dL (12.0-15.0); Ketone-Dipstick Negative (Negative); Leukocyte Esterase-Dipstick Negative /ul (Negative); Lymphocyte # 2.81 X10^3/ul (0.83-4.51); Mean Corp Hgb Conc 34.7 g/dL (32-36); Mean Corpuscular Volume 86.5 fL (81-99); Mean Platelet Vol. 10.5 fl (6.2-12.0); Monocyte# 0.46 X10^3/uL; Monocyte% 7.2 % (0-10); NRBC Flagged by Analyzer 0 % (0-5); Neutrophil % 47.1 % (47-70); Nitrite-Dipstick Negative (Negative); Occult Blood-Urine Negative /ul (Negative); Platelet Count 219 K/mm3 (150-450); Protein-Dipstick Negative (Negative); RBC Distribution Width CV 12.4 % (11.6-14.6); RBC Distribution Width SD 39.5 fl (35.1-43.9); Red Blood Count 4.53 M/mm3 (4.2-5.4); Urine Bilirubin Dipstick Negative (Negative); Urine Clarity Clear (Clear); Urine Urobilinogen Normal (Normal); Urine pH 6.5 (5.0 - 8.0); White Blood Count 6.4 K/mm3 (4.4-11.0)
[2023-04-29 18:33] LABS: Internal QC Validated? YES +Cl - CLEAR BKGD; Pregnancy, Urine Negative Negative
[2023-04-29] MEDS: Ketorolac 15 MG/ML Vial IM (18:33)
[2023-04-29 18:53] LABS: Anion Gap 5 (5-15); BUN 19 mg/dL (7-18); BUN/Creat Ratio 17.3 RATIO (10-20); Calcium,Total 8.6 mg/dL (8.5-10.1); Chloride 108 mmol/L (98-107); EST Glomerular Filtration Rate 60 mL/min (>60); Est Glom Filt Rate - Afr Amer 72 mL/min (>60); Estimated Creatinine Clearance 61.05 ml/min; Glucose 84 mg/dL (74-106); Potassium 3.7 mmol/L (3.5-5.1); Sodium Level 139 mmol/L (136-145)
[2023-04-29 20:00] VITALS: RESP 16
== END 2023-04-29 21:01 | disposition home or self-care (01) ==
PROVIDERS: Emergency Provider Student in an Organized Health Care Education/Training Program; PCP Internal Medicine; Visit Provider Student in an Organized Health Care Education/Training Program
DX: N20.1 Calculus of ureter (principal); D27.1 Benign neoplasm of left ovary; Z87.440 Personal history of urinary (tract) infections
CPT/HCPCS: 74176; 80048; 81001; 81025; 85025; 96372; 99284

== ENCOUNTER → 2023-05-05 | Outpatient (CLI) | payer OTHER, SELFPAY ==
--- NOTE | 2023-05-05 12:53 | RAD_ITS ---
INDICATION: RENAL STONE EXAMINATION/TECHNIQUE: X-RAY - frontal XR Abdomen 1 View COMPARISON: None. FINDINGS: BOWEL GAS PATTERN: Loop of small bowel distended in the mid abdomen up to 4 cm which could represent localized ileus, difficult to exclude early obstruction. FREE AIR: Not assessed on a single supine view. ORGANOMEGALY: Not seen. CALCIFICATIONS: Tiny calcification projecting over the lower pole of the right kidney measuring approximately 2.2 mm. The left kidney is obscured by superimposition of bowel. LOWER CHEST: No acute pathology. BONES AND SOFT TISSUES: No acute pathology. RAD/Abdomen Single View IMPRESSION: Focal small bowel distention in the central lower abdominal region which could represent localized ileus, difficult to exclude early small bowel obstruction. 2.2 mm calcification projecting over the lower pole of the right kidney. Electronically Signed: Prema Perez, at 16:36 EDT ,
== END | disposition home or self-care (01) ==
LOC: MTRAD 12:43
PROVIDERS: PCP Internal Medicine; Referring Provider Urology; Visit Provider Urology
DX: N20.0 Calculus of kidney (principal)
CPT/HCPCS: 74018

== ENCOUNTER 2023-05-29 07:25 | Day surgery (SDC) | payer OTHER, SELFPAY ==
[2023-05-29] VITALS (7 sets, daily range): BP systolic 107–129; BP diastolic 66–85; PULSE 59–72; RESP 16; TEMP 36.1–36.4; O2SAT 98–100; BMI 26.4
[2023-05-29 07:47] LABS: Internal QC Validated? YES +Cl - CLEAR BKGD
[2023-05-29 07:48] LABS: Pregnancy, Urine Negative Negative; Record Kit Lot#,Urine Preg HCG0000667200
[2023-05-29] MEDS: Lactated Ringers 1,000 ML 15 ML IV (07:59)
[2023-05-29 08:05] LABS: Absolute Lymphocyte Count 2.41 X10^3/uL (0.83-4.51); Absolute Neutrophil Count 2.8 X10^3/uL (2.0-7.7); Basophil# 0.02 X10^3/uL; Basophil% 0.4 % (0-1); Eosinophil# 0.05 X10^3/uL; Eosinophils% 0.9 % (0-5); Hematocrit 44.9 % (37-47); Hemoglobin 15.4 g/dL (12.0-15.0); Lymphocyte # 2.41 X10^3/ul (0.83-4.51); Lymphocyte % 42.9 % (19-41); Mean Corp Hgb Conc 34.3 g/dL (32-36); Mean Corpuscular Hgb 29.7 pg (27.0-32.0); Mean Corpuscular Volume 86.7 fL (81-99); Mean Platelet Vol. 10.7 fl (6.2-12.0); Monocyte# 0.34 X10^3/uL; NRBC Flagged by Analyzer 0 % (0-5); Neutrophil # 2.78 X10^3/uL (2.7-7.7); Neutrophil % 49.4 % (47-70); Platelet Count 229 K/mm3 (150-450); RBC Distribution Width CV 12.3 % (11.6-14.6); RBC Distribution Width SD 39.1 fl (35.1-43.9); Red Blood Count 5.18 M/mm3 (4.2-5.4); White Blood Count 5.6 K/mm3 (4.4-11.0)
--- NOTE | 2023-05-29 09:16 | DCINST_ITS ---
Discharge Instructions Diet Discharge Diet: No restrictions Activity Discharge Activity: Return to Normal Activity Dressing / Incision Call your doctor if you observe: Fever of 101 or Higher, Inability to urinate and Inability to have a bowel movement Follow Up Care Please Follow Up With: Zaynab Acuña MD When: The office will call the patient to schedule follow-up with KUB and stent removal Test Results: Test results from this visit will be discussed in further detail at your follow- up appointment, if applicable. Discharge Plan Admission Attending Provider: Zaynab Acuña Primary Care Provider: Leonard Machuca Discharge Orders/Prescriptions Prescriptions: New oxycodone-acetaminophen [Percocet] 5-325 mg tablet 1 tab PO Q8H PRN (Reason: pain) 3 Days Qty: 10 0RF cephalexin [cephalexin] 500 mg capsule 500 mg PO Q12 3 Days Qty: 6 0RF phenazopyridine [Pyridium] 200 mg tablet 200 mg PO TID PRN PRN (Reason: Bladder Spasms) 7 Days Qty: 30 0RF Continued multivitamin Tablet 1 tab PO DAILY desogestrel-ethinyl estradiol [Apri] 0.15-0.03 mg tablet 1 tab PO QDAY Qty: 28 12RF Referrals / Follow Up: Leonard Machuca MD [Primary Care Provider] - Disposition Disposition (needs filled in before D/C Order can be placed): Home, Self Care
--- NOTE | 2023-05-29 09:19 | OP.PCM_ITS ---
Report of Operation Date of Procedure: 05/29/23 Pre-Operative Diagnosis: Left renal stones, right ureteral calculi Post-Operative Diagnosis: Same Surgery/Procedure Performed:: Cystoscopy, right retrograde pyelogram, left ureteral stent insertion, left renal extracorporal shockwave lithotripsy Surgeon: Zaynab Acuña Type of Anesthesia: General Specimen's removed: None Description of Procedure: The patient is a 37-year-old female with a history of stones who presents for surgical intervention for left renal stones and confirmation of past right ureteral calculi. Informed consent was obtained. The patient was taken to the operating room and placed on the operating room table. Anesthesia monitored the head, neck, airway, IV access and vital signs throughout the case. Once anesthesia was appropriately administered, the patient was placed into dorsolithotomy position was prepped and draped in usual sterile fashion. The cystoscope was inserted through the urethra under direct visualization into the urinary bladder. The bladder and urethra were visualized in their entirety revealing no evidence of anatomic abnormality, erythema, mass or ulceration. The right ureteral orifice was gently cannulated with an 8 [place] cone-tip catheter and contrast was injected in retrograde fashion under fluoroscopic visualization revealing no evidence of filling defect or abnormality including obstruction. The stones visualized in the left lower pole were thought to be larger on fluoroscopic visualization today then thought previously based on the CT scan and KUB preoperatively. The decision was made to place a left ureteral stent. At this time the left ureteral orifice was intubated with an 0.035 Glidewire and a 4.5 [place] 26 cm JJ stent was placed over the wire with good positioning in the renal pelvis as well as the urinary bladder. The cystoscope was then removed and the patient was repositioned. The 2 large stones were aligned with the lithotripter and 3000 shocks were applied appearing to fragment the stones. The patient was then awakened and taken to the recovery room in good condition. There were no complications during this procedure. Grafts/Implants Used: 4.5 [place]ian by 26 cm JJ stent Complications None Admit VTE Documentation VTE Present on Admission: Yes VTE Mechan Device Prophylaxis: SCD's VTE Pharm Prophylaxis ordered?: No Reason prophylaxis not ordered:: Treatment Not Indicated
[2023-05-29] MEDS: Ketorolac 30 MG/ML Syringe IV (11:00)
== END 2023-05-29 11:38 | disposition home or self-care (01) ==
LOC: SDC 07:31 → AC 08:54
PROVIDERS: Anesthesiology; Obstetrics & Gynecology; PCP Internal Medicine; Referring Provider Urology; Visit Provider Urology
PROC: (CPT 50590; principal; 2023-05-29 08:35)
DX: N20.2 Calculus of kidney with calculus of ureter (principal); N39.0 Urinary tract infection, site not specified
CPT/HCPCS: 50590; 52332; 00873; 81025; 85025; J7120; J2405

== ENCOUNTER → 2023-06-02 | Outpatient (CLI) | payer OTHER, SELFPAY ==
--- NOTE | 2023-06-02 15:10 | RAD_ITS ---
HISTORY: KUB. TECHNIQUE: XR Abdomen 1 View. COMPARISON: 05/05/2023. CTA 2323. FINDINGS: BOWEL GAS PATTERN: No dilated bowel loops identified. FREE AIR: Not assessed on supine view. CALCIFICATIONS: Interval placement of left ureteral stent. Small left lower pole calculus noted. Limited evaluation of the right kidney due to overlying bowel gas. Small tooth-shaped calcification in the left pelvis, corresponding to ovarian dermoid on CT. Small calculi along the distal course of the left ureteral stent measuring up to 3 mm. BONES: Unremarkable. SOFT TISSUES: Lung bases clear. RAD/Abdomen Single View IMPRESSION: Interval left ureteral stent placement with left nephrolithiasis and distal ureterolithiasis. Electronically Signed: Brina Alvares MD at 9:24 EDT ,
== END | disposition home or self-care (01) ==
LOC: MTRAD 15:09
PROVIDERS: PCP Internal Medicine; Referring Provider Urology; Visit Provider Urology
DX: N20.2 Calculus of kidney with calculus of ureter (principal)
CPT/HCPCS: 74018

== ENCOUNTER → 2023-06-15 | Outpatient (CLI) | payer OTHER, SELFPAY ==
--- NOTE | 2023-06-15 09:54 | RAD_ITS ---
STUDY: X-RAY - ABDOMEN/PELVIS REASON FOR EXAM: Female, 37 years old. RENAL CALCULUS TECHNIQUE: Single AP view of the abdomen / pelvis. COMPARISON: 06/02/2023. FINDINGS: Normal visualized lung bases. Grossly stable positioning of a left ureteral stent in satisfactory position. No definite ureteral stones are seen. Renal stones are not excluded because of overlying colonic contents. There is an unremarkable bowel gas pattern. There is no demonstrated free abdominal air. The visualized liver, spleen and kidneys are grossly normal in size and morphology. Normal soft tissue structures. Normal visualized osseous structures. RAD/Abdomen Single View IMPRESSION: Left ureteral stent in satisfactory position. Electronically Signed: Nicholas Alcocer MD at 18:34 EDT ,
== END | disposition home or self-care (01) ==
PROVIDERS: PCP Internal Medicine; Referring Provider Urology; Visit Provider Urology
DX: N20.2 Calculus of kidney with calculus of ureter (principal)
CPT/HCPCS: 74018

== ENCOUNTER → 2023-07-13 | Outpatient (CLI) | payer OTHER, SELFPAY ==
[2023-07-13 10:25] LABS: Bacteria 0 SEEN /hpf (None Seen); Mucous, Urine 0 SEEN /hpf (<or=2+); Red Blood Cells-Urine 0 SEEN /hpf (0-5)
[2023-07-13 10:37] LABS: Color, Urine Yellow (Yellow); Glucose, Dipstick Normal (Normal); Ketone-Dipstick Negative (Negative); Leukocyte Esterase-Dipstick 100 /ul (Negative); Nitrite-Dipstick Negative (Negative); Occult Blood-Urine Negative /ul (Negative); Protein-Dipstick Negative (Negative); Urine Bilirubin Dipstick Negative (Negative); Urine Clarity Clear (Clear); Urine Urobilinogen Normal (Normal)
[2023-07-13 10:56] LABS: Squamous Epithelial Cells - UA 0-5 SEEN /hpf (5-10); White Blood Cells 10-25 SEEN /hpf (0-5)
== END | disposition home or self-care (01) ==
LOC: LABSPEC 10:08
PROVIDERS: PCP Internal Medicine; Referring Provider Physician Assistant; Visit Provider Physician Assistant
DX: R30.0 Dysuria (principal)
CPT/HCPCS: 81001; 87077; 87086; 87088; 87186